=== PATIENT | female | born 1945 | race Caucasian/White ===

== ENCOUNTER 2020-04-25 17:40 | Inpatient (IN) | payer MEDICARE, SELFPAY ==
[2020-04-25] VITALS (15 sets, daily range): BP systolic 92–174; BP diastolic 47–94; PULSE 86–111; RESP 14–40; TEMP 36.7; O2SAT 75–100; BMI 29.5
--- NOTE | 2020-04-25 18:02 | PC.NURSE ---
Dr. Santiago in room to see patient. Patient currently alert and oriented x 3 and reports she is willing to go on ventilator if she needs to.
--- NOTE | 2020-04-25 18:03 | XRR_ITS ---
PROCEDURE INFORMATION: Exam: XR Chest, 1 View Exam date and time: 04/25/2020 6:25 PM Age: 75 years old Clinical indication: Dyspnea TECHNIQUE: Imaging protocol: XR of the chest Views: 1 view. COMPARISON: No relevant prior studies available. FINDINGS: Lungs: Dense airspace consolidation in the right lung base and patchy consolidation in the left base. Diffuse ground-glass opacities in both lungs. Pleural space: Probable right pleural effusion. No pneumothorax. Heart/Mediastinum: Left [id number] with tip in the superior left mediastinum, most likely in the left brachycephalic vein. Bones/joints: Unremarkable. XR/XR chest 1V portable [id number] IMPRESSION: 1. Bilateral pneumonia with possible superimposed pulmonary edema. 2. Dense consolidation in the right lung base could represent pneumonia. Postobstructive changes related to a central obstructing neoplasm is not excluded. Correlation to prior studies recommended. If none are available, follow-up with a CT chest is recommended.
--- NOTE | 2020-04-25 18:04 | ECG_ITS ---
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 Measurements Intervals [place] Rate: 93 P: 52 FL: 134 QRS: 6 QRSD: 87 T: 90 QT: 281 QTc: 350 Interpretive Statements SINUS RHYTHM POSSIBLE RIGHT VENTRICULAR CONDUCTION DELAY [RSR (QR) IN V1/V2] NONSPECIFIC T-WAVE ABNORMALITY Compared to ECG 04/25/2020 20:17:18 Incomplete right bundle-branch block no longer present T-wave abnormality still present Electronically Signed On 04-26-2020 10:57:45 MEDICAL RECORDS ASSISTANT by Julio Obregon M.D. [id number]
--- NOTE | 2020-04-25 18:16 | ED_ITS ---
HPI - SOB/Dyspnea General: Chief Complaint: Shortness of Breath/Dyspnea Stated Complaint: SOB; COVID POS Time Seen by Provider: 04/25/20 17:45 Source: patient Limitations: no limitations History of Present Illness: HPI Narrative: Danyell is a 75-year-old female who comes in from the senior care in respiratory distress. Patient tested positive for Covid 2 days ago. Since that time she has declined significantly. Patient is alert and oriented to person, place, time and situation. I am going to place her on BiPAP but she is in respiratory distress but after discussing with her she does agree to go on a ventilator if necessary. Patient is 90 chest pain. He does want to try BiPAP before we move forward. Patient is a DNR but does agree to do a ventilator if will help keep her alive. Further history is on obtainable as the patient has significant dyspnea and gives 1 or 2 word answers to questions. 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 Type 2 diabetes mellitus Surgical History (Updated 04/25/20 @ 22:01 by Harmeet Reid MD) No pertinent past surgical history Family History (Updated 04/25/20 @ 22:03 by Harmeet Reid MD) Other No pertinent family history Social History (Updated 04/25/20 @ 22:04 by Harmeet Reid MD) Smoking and tobacco status: former smoker Alcohol intake: unknown Substance/Drug Use: unknown Housing: Longterm Physical Exam Const: COMMON NORMALS: patient oriented x3 and alert GENERAL APPEARANCE: in distress and frail appearing HENMT: COMMON NORMALS: normocephalic, atraumatic, external ears normal, EAC's normal and Normal external nose present HEAD & SCALP: normal to inspection, normocephalic and atraumatic FACE & SINUS: normal facial exam and face symmetric NOSE: Normal external nose present and Normal nares present EXTERNAL EAR: Yes external ears normal EXTERNAL AUDITORY CANAL: EAC's normal MOUTH: Normal oral and palatal mucosa present, lip normal and tongue normal Eye: COMMON NORMALS: Equal, round and reactive pupils present and conjunctivae normal GENERAL EYE: appearance normal, both eyes and all related structures ALIGNMENT: Yes alignment normal PERIORBITAL: periorbital findings normal EYELID: eyelids normal CONJUNCTIVA: Yes conjunctivae normal SCLERA: sclerae normal PUPIL: Yes Equal, round and reactive pupils present Neck/C-Spine: COMMON NORMALS: full ROM, no lymphadenopathy, supple, no meningeal signs and no JVD GENERAL: Yes normal visual inspection and Yes trachea midline Chest: COMMONS NORMALS: normal inspection of the chest and normal palpation of entire chest wall Resp: EFFORT & INSPECTION: Yes labored and Yes retractions AUSCULTATION: rales, rhonchi and wheezes Cardio: COMMON NORMALS: no JVD, regular rate, regular rhythm, S1 normal heart sound present and S2 normal heart sound present RATE: regular rate RHYTHM: regular rhythm HEART SOUNDS: S1 normal heart sound present, S2 normal heart sound present, no click, no gallops, no murmurs and no rubs GI: COMMON NORMALS: Soft to palpation and No hepatosplenomegaly present PALPATION: Yes Soft to palpation, No Tenderness to palpation present (GI), No Guarding due to palpation present (GI), No Rigid due to palpation, Yes No hepatosplenomegaly present, No Hernia present, No Palpable mass present and No Pulsatile mass present : COMMON NORMALS: Yes no CVA tenderness BLADDER/KIDNEY EXAM: Yes no CVA tenderness EXTERNAL FEMALE EXAM: No Hernia present Back/Pelvis: COMMON NORMALS: no CVA tenderness, thoracic and lumbar spine normal to inspection, no thoracic nor lumbar tenderness and thoraco-lumbar ROM normal Extremity: COMMON NORMALS: normal to inspection, full ROM, capillary refill normal, no joint enlargement, no clubbing, cyanosis or edema and no calf tenderness Neuro: COMMON NORMALS: patient oriented x3, CN's II-XII intact bilaterally, moves all extremities, no focal motor deficits and no sensory deficits noted SENSORIUM/ORIENTATION: Yes alert MENINGEAL SIGNS: Yes no meningeal signs SPEECH: speech normal Psych: COMMON NORMALS: mental status grossly normal, Normal thought process p resent, cooperative, speech normal and activity/motor behavior normal SPEECH: Yes normal speech THOUGHT PROCESS: Normal thought process present Skin: COMMON NORMALS: no rashes or lesions noted, turgor normal, no jaundice, no petechiae and no mottling GENERAL SKIN EXAM: no rashes or lesions noted and turgor normal Procedures Intubation Time out performed: Yes sedative: Etomidate Mg Given: 20 paralytic: Succinylcholine Mg Given: 125 Laryngoscope: fiber optic video scope ET Tube Size: 8 Tube Secured Depth (cm): 20 Tube Secured Location: lips Tube Placement Confirmation: visualized tube passing through cords Patient Tolerated Procedure: well and no complications Intubation Complications: none Course Vital Signs: Vital signs: Vital Signs Temperature 98.8 F 04/26/20 04:00 Pulse Rate 104 H 04/26/20 05:00 Respiratory Rate 14 04/26/20 04:03 Blood Pressure 104/48 04/26/20 05:00 Pulse Oximetry 94 04/26/20 05:00 MDM - SOB/Dyspnea MDM Narrative: Medical decision making narrative: Patient did not tolerate BiPAP and continue to become hypoxic and lethargic. She was able to talk to Dr. Reid before we made the decision to intubate but he agreed with that decision as well. He was able to talk to the patient's who agreed with that decision as well. Patient is now resting comfortably on the ventilator. Patient be admitted to our viral ICU. Lab Data: Attestation: I reviewed the patient's lab results. Labs: Lab Results 04/25/20 04/25/20 04/25/20 Range/Units 18:15 19:17 19:17 WBC 8.6 (4.0-10.0) 10^3/ uL RBC 3.71 L (4.1-5.3) 10^6/u L Hgb 10.0 L (11.5-15.3) g/dL Hct 35.1 L (37.0-47.0) % MCV 94.6 (81-99) fL MCH 27.0 L (28.0-34.0) pg MCHC 28.5 L (30.0-36.0) g/dL RDW 15.7 H (12.1-15.1) % Plt Count 237 (130-400) 10^3/c mm MPV 9.2 (7.4-10.4) fL Neut % (Auto) 93.2 % Lymph % (Auto) 1.7 % [place] % (Auto) 4.1 % Eos % (Auto) 0.0 % Baso % (Auto) 0.1 % Neut # (Auto) 8.05 H (1.8-7.7) 10^3/u L Lymph # (Auto) 0.2 L (0.8-4.8) 10^3/u L [place] # (Auto) 0.4 (0.2-0.9) 10^3/u L Eos # (Auto) 0.0 (0.0-0.8) 10^3/u L Baso # (Auto) 0.0 (0.0-0.1) 10^3/u L Nucleated RBC % (a uto) 0 % Nucleated RBCs # 0.0 /100WBC PT 14.60 (12.1-14.9) SECO NDS INR 1.10 (0.8-1.2) Fibrinogen 780 H (174-498) mg/dL D-Dimer 4.02 H (0-0.59) ug/mIFE U Specimen Type Arterial Sample Site Brachial, right ABG pH 7.29 L (7.35-7.45) ABG pCO2 75.7 H* (35-45) mmHg ABG pO2 35.8 L* (80.0-100.0) mmH g ABG HCO3 36.3 H (22-26) mmol/L ABG Base Excess 7.9 H (-2.0-2.0) mmol/ L Renzo Test Pos Hematocrit 29.3 L (37-47) % O2 Delivery Device Nc O2 Liters/Min 8.0 % Pharmacy Technologist ID Bd Sodium (136-145) mmol/L Potassium (3.5-5.1) mmol/L Chloride (98-107) mmol/L Carbon Dioxide (22-29) mmol/L Anion Gap (5-19) BUN (8-23) mg/dL Creatinine (0.5-0.9) mg/dL GFR Calculation Glucose (65-115) mg/dL Calculated Osmolal ity (285-295) mOsm/k g Lactic Acid (0.5-2.2) mmol/L Calcium (8.5-10.5) mg/dL Magnesium (1.7-2.3) mg/dL Total Bilirubin (0.15-1.2) mg/dL AST (0-32) U/L ALT (0-33) U/L Alkaline Phosphata se (35-105) IU/L Troponin T Baselin e (0-10) ng/L C-Reactive Protein (0.0-4.9) mg/L NT-Pro-B Natriuret Pep (0-450) pg/mL Total Protein (6.6-8.7) g/dL Albumin (3.5-5.2) g/dL Globulin (1.3-4.6) g/dL Procalcitonin (0-0.5) ng/mL 04/25/20 04/25/20 04/25/20 Range/Units 19:17 19:17 19:17 WBC (4.0-10.0) 10^3/ uL RBC (4.1-5.3) 10^6/u L Hgb (11.5-15.3) g/dL Hct (37.0-47.0) % MCV (81-99) fL MCH (28.0-34.0) pg MCHC (30.0-36.0) g/dL RDW (12.1-15.1) % Plt Count (130-400) 10^3/c mm MPV (7.4-10.4) fL Neut % (Auto) % Lymph % (Auto) % [place] % (Auto) % Eos % (Auto) % Baso % (Auto) % Neut # (Auto) (1.8-7.7) 10^3/u L Lymph # (Auto) (0.8-4.8) 10^3/u L [place] # (Auto) (0.2-0.9) 10^3/u L Eos # (Auto) (0.0-0.8) 10^3/u L Baso # (Auto) (0.0-0.1) 10^3/u L Nucleated RBC % (a uto) % Nucleated RBCs # /100WBC PT (12.1-14.9) SECO NDS INR (0.8-1.2) Fibrinogen (174-498) mg/dL D-Dimer (0-0.59) ug/mIFE U Specimen Type Sample Site ABG pH (7.35-7.45) ABG pCO2 (35-45) mmHg ABG pO2 (80.0-100.0) mmH g ABG HCO3 (22-26) mmol/L ABG Base Excess (-2.0-2.0) mmol/ L Renzo Test Hematocrit (37-47) % O2 Delivery Device O2 Liters/Min % Pharmacy Technologist ID Sodium 145 (136-145) mmol/L Potassium 2.5 L* (3.5-5.1) mmol/L Chloride 96 L (98-107) mmol/L Carbon Dioxide 38 H (22-29) mmol/L Anion Gap 13.5 (5-19) BUN 30 H (8-23) mg/dL Creatinine 0.7 (0.5-0.9) mg/dL GFR Calculation Not Reportable Glucose 332 H (65-115) mg/dL Calculated Osmolal ity 319 H (285-295) mOsm/k g Lactic Acid 1.9 (0.5-2.2) mmol/L Calcium 9.0 (8.5-10.5) mg/dL Magnesium 2.0 (1.7-2.3) mg/dL Total Bilirubin 0.3 (0.15-1.2) mg/dL AST 37 H (0-32) U/L ALT 25 (0-33) U/L Alkaline Phosphata se 101 (35-105) IU/L Troponin T Baselin e 44 H (0-10) ng/L C-Reactive Protein 270.9 H (0.0-4.9) mg/L NT-Pro-B Natriuret Pep 1674 H (0-450) pg/mL Total Protein 6.2 L (6.6-8.7) g/dL Albumin 3.1 L (3.5-5.2) g/dL Globulin 3.1 (1.3-4.6) g/dL Procalcitonin (0-0.5) ng/mL 04/25/20 Range/Units 19:17 WBC (4.0-10.0) 10^3/ uL RBC (4.1-5.3) 10^6/u L Hgb (11.5-15.3) g/dL Hct (37.0-47.0) % MCV (81-99) fL MCH (28.0-34.0) pg MCHC (30.0-36.0) g/dL RDW (12.1-15.1) % Plt Count (130-400) 10^3/c mm MPV (7.4-10.4) fL Neut % (Auto) % Lymph % (Auto) % [place] % (Auto) % Eos % (Auto) % Baso % (Auto) % Neut # (Auto) (1.8-7.7) 10^3/u L Lymph # (Auto) (0.8-4.8) 10^3/u L [place] # (Auto) (0.2-0.9) 10^3/u L Eos # (Auto) (0.0-0.8) 10^3/u L Baso # (Auto) (0.0-0.1) 10^3/u L Nucleated RBC % (a uto) % Nucleated RBCs # /100WBC PT (12.1-14.9) SECO NDS INR (0.8-1.2) Fibrinogen (174-498) mg/dL D-Dimer (0-0.59) ug/mIFE U Specimen Type Sample Site ABG pH (7.35-7.45) ABG pCO2 (35-45) mmHg ABG pO2 (80.0-100.0) mmH g ABG HCO3 (22-26) mmol/L ABG Base Excess (-2.0-2.0) mmol/ L Renzo Test Hematocrit (37-47) % O2 Delivery Device O2 Liters/Min % Pharmacy Technologist ID Sodium (136-145) mmol/L Potassium (3.5-5.1) mmol/L Chloride (98-107) mmol/L Carbon Dioxide (22-29) mmol/L Anion Gap (5-19) BUN (8-23) mg/dL Creatinine (0.5-0.9) mg/dL GFR Calculation Glucose (65-115) mg/dL Calculated Osmolal ity (285-295) mOsm/k g Lactic Acid (0.5-2.2) mmol/L Calcium (8.5-10.5) mg/dL Magnesium 2.0 (1.7-2.3) mg/dL Total Bilirubin (0.15-1.2) mg/dL AST (0-32) U/L ALT (0-33) U/L Alkaline Phosphata se (35-105) IU/L Troponin T Baselin e (0-10) ng/L C-Reactive Protein (0.0-4.9) mg/L NT-Pro-B Natriuret Pep (0-450) pg/mL Total Protein (6.6-8.7) g/dL Albumin (3.5-5.2) g/dL Globulin (1.3-4.6) g/dL Procalcitonin 0.21 (0-0.5) ng/mL Imaging Data^: CXR: Attestation: I personally reviewed and interpreted this imaging study as follows: My impression: Cardiomegaly with bilateral lower lobe infiltrates. EKG Data^: EKG 1: Attestation: I personally reviewed and interpreted this EKG as follows: EKG Interpretation Date: 04/25/20 EKG interpretation time: 20:17 Interpretation: Normal sinus rhythm at 96 beats a minute, incomplete right bundle branch block, normal intervals, no acute ST or T wave changes. Discharge Plan Discharge Patient Disposition: Admitted As Inpatient Admit Provider: Harmeet Reid Clinical Impression: Acute exacerbation of chronic obstructive airways disease, Pneumonia due to COVID-19 virus Condition: Stable Coding Level of Care Code ED Furnace Repairer Helper for Chg Fwd Exam Comprehensive
[2020-04-25 18:23] LABS: ABG PH Result 7.29 (7.35-7.45); Arterial Blood Gas Hematocrit 29.3 % (37-47); Base Excess ABG 7.9 mmol/L (-2.0-2.0); Blood Gas Allen Test Pos; Blood Gas Operator Identificat BD; Blood Gas Sample Site Brachial, right; Blood Gas Sample Type Arterial; HCO3 ABG 36.3 mmol/L (22-26); Oxygen Device NC; PO2 ABG 35.8 mmHg (80.0-100.0)
[2020-04-25 18:24] LABS: ABG PCO2 75.7 mmHg (35-45)
[2020-04-25] MEDS: ipratropium-albuterol 3 mL Neb 9 ML INHALATION (18:51)
[2020-04-25] MEDS: dexamethasone 4 mg/mL INJ 10 MG IVP (19:20)
[2020-04-25] MEDS: sodium chloride 0.9% 1,000 ML 100 ML IV (19:20)
[2020-04-25 19:21] LABS: Basophils % 0.1 %; Hematocrit 35.1 % (37.0-47.0); Lymphocytes # 0.2 10^3/uL (0.8-4.8); Lymphocytes % 1.7 %; Mean Corpuscular HGB Conc 28.5 g/dL (30.0-36.0); Mean Corpuscular Volume 94.6 fL (81-99); Mean Platelet Volume 9.2 fL (7.4-10.4); Monocytes # 0.4 10^3/uL (0.2-0.9); Monocytes % 4.1 %; Neutrophils # 8.05 10^3/uL (1.8-7.7); Neutrophils % 93.2 %; Nucleated Red Blood Cells % 0 %; Platelet Count 237 10^3/cmm (130-400); Red Blood Count 3.71 10^6/uL (4.1-5.3); Red Cell Distribution Width 15.7 % (12.1-15.1); White Blood Count 8.6 10^3/uL (4.0-10.0)
--- NOTE | 2020-04-25 19:24 | PM.HP ---
Providers/Chief Complaint Primary Care Provider: Praveen Combs MD Chief Complaint: SOB; COVID POS History of Present Illness Danyell Douglass is a 75 year old female presented from a fpc for acute respiratory distress. Patient was tested positive with COVID-19 pneumonia 2 days ago and in last 48 hours her breathing has gotten worse. [facility] report: admitted last week 04/15, after she was diagnosed with pneumonia, at the facility she was kept on 5 L nasal cannula for hypoxic respiratory failure she was saturating 88 to 89% last night and this morning her breathing got worse\she was sent to the hospital for further evaluation. Nursing staff did not notice vomiting but patient was endorsing nausea to them, no fever or recent diarrhea. They are not sure whether she received any chemo/radiotherapy for her lung cancer. Talked with the son (phone #[phone]): Son is stating that she was diagnosed with lung cancer but he is not sure about the subtype, she went for chemotherapy at [place] for couple months and stopped getting chemo in July of this year, he is not sure about complete medical history, but he is stating that Dr. Ramo Clark at [facility] would have her records. He is not sure whether she was diagnosed with pneumonia a month ago or in January. She was intubated in the ER because of persistent hypoxia on BiPAP she was not tolerating BiPAP at all, Dr. Chun had discussed with the patient about intubation, she gave consent but had official documentation for DO NOT RESUSCITATE only, Dr. Chun asked me to analyze goals of care, I examined the patient while she was on BiPAP, she was hypoxic being on BiPAP and was very irritable and agitated when I discussed about intubation, she seemed to understand the gravity of her shortness of breath, she was awake alert not confused at all, she agreed with intubation and stated I do not care if we have to do it I called family as well, was told about the situation and he agreed with the intubation as well. Dr. Chun was conveyed about the goals of care who intubated the patient. 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 Type 2 diabetes mellitus Surgical History (Updated 04/25/20 @ 22:01 by Harmeet Reid MD) No pertinent past surgical history Family History (Updated 04/25/20 @ 22:03 by Harmeet Reid MD) Other No pertinent family history Social History (Updated 04/25/20 @ 22:04 by Harmeet Reid MD) Smoking and tobacco status: former smoker Alcohol intake: unknown Substance/Drug Use: unknown Housing: Detention Vitals/I&O/Wt Last Vital Signs Temp 98.1 F 04/25/20 17:46 Pulse 98 04/25/20 18:55 Resp 40 H 04/25/20 18:54 BP 128/71 04/25/20 17:46 Pulse Ox 86 L 04/25/20 18:54 Weight last 48 hrs Weight 70.76 kg Physical Exam Narrative: EXAM NARRATIVE: elderly female who appears more than stated age Clinically looks mildly fluid overloaded Malnourished Currently intubated PRVC tidal volume 450 PEEP 10 FiO2 100% on fentanyl 35 and propofol 5 Saturating 97% normal hemodynamics No skin mottling noted Assisted breath sounds with adventitious sound coarse rhonchi and crackles S1, S2 sinus rhythm signs of heart failure Nontender abdomen, soft Lower extremity no gangrene ulcer trace edema Waldron catheter draining urine Before intubation consent was taken, goals of care were discussed with the patient and the son Before intubation she was on BiPAP was able to understand the gravity of shortness of breath, she was awake and alert and oriented to place and person, however was not keeping her mask on Data : 04/25/20 19:17 04/25/20 19:17 Micro: Microbiology 04/25/20 19:17 Blood Culture - Preliminary Blood SPECIMEN COLLECTED A&P Assessment and plan (1) Acute exacerbation of chronic obstructive airways disease: Status: Acute (2) Sepsis: Status: Acute (3) Sepsis with acute hypoxic respiratory failure: Status: Acute (4) Hypokalemia: Status: Acute (5) Respiratory failure: Status: Acute (6) Acute hypercapnic respiratory failure: Status: Acute (7) Pulmonary edema: Status: Acute Additional A&P Information Acute on chronic hypoxic hypercarbic respiratory failure Underlying history of lung cancer Postobstructive pneumonia to be ruled out, I would request CT chest Currently intubated PRVC tidal volume 450 PEEP 10 FiO2 100% Currently on 2 sedating agents fentanyl at 35 and propofol at 5 Hemodynamics are stable Would request another blood gas post intubation She was intubated for worsening shortness of breath increased work of breathing and hypoxia despite being on BiPAP Sepsis secondary to community-acquired pneumonia He is immunocompromised with history of lung cancer previous history of chemoradiation was recently diagnosed with pneumonia I would go ahead and escalate antibiotics to double antipseudomonal coverage along vancomycin Request antigen sputum culture, blood culture DuoNeb every 4 as needed She was recently diagnosed with COVID-19 2 days ago Would request procalcitonin level Hypokalemia Nursing staff did not endorse diarrhea or vomiting at the facility She has been taking Lasix 40 mg for congestive heart failure which might be etiology for hypokalemia Potassium repleted Hypertension: She has been taking lisinopril which I would resume for now with close monitoring of hemodynamics while being on 2 sedating agent Type 2 diabetes: Accu-Cheks every 6 hours with moderate sliding scale Congestive heart failure ejection fraction unknown, Mild signs of fluid overload, she meet sepsis criteria, judicious use of fluid I will keep her on D5 normal saline with potassium supplementation fluid rate at 75 mL/h with close monitoring for worsening of edema, hold Lasix for now Also care discussed with the patient and her son Patient verbalized understanding and gave consent for intubation to the ER physician which was also witnessed by myself and respiratory therapist DVT prophylaxis considering high D-dimer and history of cancer I would start her on therapeutic dose of Lovenox for high suspicion of PE/DVT, I have requested CTA chest to rule out PE Prognosis: Guarded Son updated We will request records from [facility] Attestations Medical Necessity Statement*: Anticipating stay in the hospital cross more than 2 midnights continued management for sepsis, pneumonia, respiratory failure currently intubated and sedated need ICU management Time Spent in Patient Care: (>than 50% of time spent in counselling and/or direct pt care on unit). 50mins Coding Level of Care Code Acute Fundraising Assistant for Chg Fwd Diagnoses Acute exacerbation of chronic obstructive airways disease J44.1 Sepsis A41.9 Sepsis with acute hypoxic respiratory failure A41.9; R65.20; J96.01 Hypokalemia E87.6 Respiratory failure J96.90 Acute hypercapnic respiratory failure J96.02 Pulmonary edema J81.1
[2020-04-25 19:39] LABS: Lactic Sepsis W/Reflex 1.9 mmol/L (0.5-2.2)
[2020-04-25 19:41] LABS: Fibrinogen 780 mg/dL (174-498)
[2020-04-25] MEDS: succinylcholine 20 mg/mL SDV 10mL 125 MG IVP (19:42)
[2020-04-25 19:43] LABS: Troponin(5th) Baseline 44 ng/L (0-10)
[2020-04-25 19:50] LABS: D Dimer 4.02 ug/mIFEU (0-0.59)
[2020-04-25 19:51] LABS: Alanine Aminotransferase 25 U/L (0-33); Albumin Level 3.1 g/dL (3.5-5.2); Alkaline Phosphatase 101 IU/L (35-105); Anion Gap 13.5 (5-19); Aspartate Amino Transferase 37 U/L (0-32); Blood Urea Nitrogen 30 mg/dL (8-23); C Reactive Protein 270.9 mg/L (0.0-4.9); Carbon Dioxide 38 mmol/L (22-29); Chloride 96 mmol/L (98-107); Globulin 3.1 g/dL (1.3-4.6); Glucose 332 mg/dL (65-115); NT Pro B Type Natriuretic Pept 1674 pg/mL (0-450); Osmolality Calculated 319 mOsm/kg (285-295); Sodium 145 mmol/L (136-145); Total Bilirubin 0.3 mg/dL (0.15-1.2); Total Protein 6.2 g/dL (6.6-8.7)
--- NOTE | 2020-04-25 19:51 | XRR_ITS ---
PROCEDURE INFORMATION: Exam: XR Chest, 1 View Exam date and time: 04/25/2020 7:52 PM Age: 75 years old Clinical indication: Device placement; Ett placement (vent status); Additional info: Post intubation TECHNIQUE: Imaging protocol: XR of the chest Views: 1 view. COMPARISON: CR (CHEST, ) 04/25/2020 6:23 PM FINDINGS: Tubes, catheters and devices: Intubation with tip 5.7 cm above the lexy. NG tube with tip in the proximal stomach. Lungs: Stable dense consolidation in the right lung base. Stable dense patchy ground-glass opacities throughout both lungs. Pleural space: Stable small right pleural effusion. No pneumothorax. Heart/Mediastinum: Unremarkable. No cardiomegaly. Bones/joints: Unremarkable. Other findings: Stable left Yihcwz-[id number]-Yotm. XR/XR chest 1V portable [id number] IMPRESSION: 1. Stable chest following intubation.
[2020-04-25 19:52] LABS: Potassium 2.5 mmol/L (3.5-5.1)
--- NOTE | 2020-04-25 20:04 | ECG_ITS ---
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 Measurements Intervals [place] Rate: 96 P: 50 ND: 134 QRS: 3 QRSD: 93 T: 68 QT: 327 QTc: 414 Interpretive Statements SINUS RHYTHM INCOMPLETE RIGHT BUNDLE BRANCH BLOCK [90+ ms QRS DURATION, TERMINAL R IN V1/V2, 40+ ms S IN I/aVL/V4/V5/V6] NONSPECIFIC T-WAVE ABNORMALITY No previous ECG available for comparison Electronically Signed On 04-26-2020 11:04:51 INTERNET APPLICATION DEVELOPER by Julio Obregon M.D. [id number]
[2020-04-25] MEDS: LORazepam 2 mg/mL INJ 1 mL IVP (20:11)
[2020-04-25] MEDS: fentaNYL 50 mcg/mL INJ 2mL 100 MCG IVP (20:12)
[2020-04-25] MEDS: vecuronium 10 mg SDV IVP (20:13)
[2020-04-25 20:42] LABS: ABG PCO2 51.9 mmHg (35-45); ABG PH Result 7.41 (7.35-7.45); Arterial Blood Gas Hematocrit 31.4 % (37-47); Blood Gas Allen Test Pos; Blood Gas Sample Site Radial, left; Blood Gas Sample Type Arterial; Blood Gas Tidal Volume 0.45; HCO3 ABG 32.8 mmol/L (22-26); Oxygen Device VENT
[2020-04-25 20:50] LABS: Urine Appearance Clear (CLEAR); Urine Color Yellow (Yellow); pH Urine 5 (5-7)
[2020-04-25 20:51] LABS: Bilirubin Urine Neg (Negative); Blood Urine Neg (Negative); Glucose Urine UA Norm (Normal); Ketones Urine Negative (Negative); Leukocyte Esterase Urine Negative (Negative); Nitrate Urine Negative (Negative); Protein Urine Neg (Negative); Urobilinogen Urine Norm (Negative)
[2020-04-25 20:54] LABS: Add Urine Culture? No; Amorphous Sediment Urine 2+ /hpf; Bacteria Urine TRACE /hpf; RBC Urine 0-4 /hpf (0-2); Squamous Epithelial Cell Urine 0-4 /hpf (0-5); WBC Urine 0-4 /hpf (0-5)
--- NOTE | 2020-04-25 21:04 | CTR_ITS ---
PROCEDURE INFORMATION: Exam: CT Angiography Chest With Contrast Exam date and time: 04/25/2020 9:22 PM Age: 75 years old Clinical indication: Dyspnea; Patient HX: HX of lung CA covid+ resp distress intubated; Additional info: Neoplasm TECHNIQUE: Imaging protocol: Computed tomographic angiography of the chest with intravenous contrast. 3D rendering (Not supervised by radiologist): MIP and/or 3D reconstructed images were created by the technologist. Radiation optimization: All CT scans at this facility use at least one of these dose optimization techniques: automated exposure control; mA and/or kV adjustment per patient size (includes targeted exams where dose is matched to clinical indication); or iterative reconstruction. Contrast material: OMNI 350; Contrast volume: 69 ml; Contrast route: INTRAVENOUS (IV); COMPARISON: CR (CHEST, ) 04/25/2020 8:05 PM RADIATION DOSE METRICS: Total DLP (mGy-cm): 544.05 FINDINGS: Tubes, catheters and devices: NG tube with tip in the mid stomach. Pulmonary arteries: Normal. No pulmonary emboli. Aorta: Mild aneurysmal dilatation of the ascending thoracic aorta measuring 4.0 cm. No dissection. Lungs: Dense consolidation in the right middle lobe, right lower lobe, and posterior right upper lobe. There is loss of air bronchograms in the right lower lobe. Narrowing of the right middle lobe proximal bronchus with distal bronchiectasis. Obstruction of the right lower lobe bronchus. Patchy mixed ground-glass and interstitial opacities throughout the remainder of both lungs. Pleural space: Small right pleural effusion. Heart: Small pericardial effusion. Coronary artery calcifications. Cardiomegaly. Mediastinal space: Intubation with tip in the midthoracic trachea. Lymph nodes: Unremarkable. No enlarged lymph nodes. Spleen: Calcified granulomas in the spleen. Intraperitoneal space: Mild ascites. Bones/joints: Unremarkable. No acute fracture. Soft tissues: Unremarkable. CT/CT angio chest PE protcl [id number] IMPRESSION: 1. No evidence for pulmonary embolus. 2. Multilobar ground-glass opacities with dense consolidation in the right middle and lower lobes. This is consistent with severe COVID-19 pneumonia. 3. There is loss of air bronchograms within the right lower lobe and obstruction of the right lower lobe main bronchus. A discrete mass is not visualized, however a neoplastic process cannot be excluded. Consider follow-up with bronchoscopy when patient is able. 4. Small right pleural effusion. 5. Small pericardial effusion. Radiation Dose CTDIVOL = (mGy): DLP = 544.05 (mGy-cm)
[2020-04-25 21:28] LABS: Influenza A by IFA Negative (Negative); Influenza B by IFA Negative (Negative)
[2020-04-25 21:30] LABS: Procalcitonin 0.21 ng/mL (0-0.5)
[2020-04-25] MEDS: FUROsemide 10 mg/mL SDV 4mL 40 MG IVP (21:31)
[2020-04-25] MEDS: fentaNYL 50 mcg/mL INJ 2mL 10 MCG IVP (21:32)
[2020-04-25] MEDS: propofol 1,000 MG/100 ML INJ 2.1 MG IV (21:36)
[2020-04-25] MEDS: iohexol 350 mg/mL 100 mL Btl IV (22:27)
[2020-04-25] MEDS: potassium chloride premix 100 ML 25 MEQ IV (22:51)
--- NOTE | 2020-04-25 23:51 | PC.NURSE ---
EKG done at 2340 and shown to ER doctor
[2020-04-26] VITALS (169 sets, daily range): BP systolic 61–137; BP diastolic 37–75; PULSE 73–178; RESP 1–28; TEMP 36.8–37.2; O2SAT 72–97
--- NOTE | 2020-04-26 00:04 | ECG_ITS ---
[facility] ED Test Date: 2020-04-26 Pat Name: Danyell Douglass Department: Room: ICU19 Gender: Female Home Manager: : 1945 Requested By: Madelin Hood Order Number: [id number] Pradeep MD: Jennifer Mercer M.D. Measurements Intervals [place] Rate: 99 P: 49 [place]: 131 QRS: 9 QRSD: 91 T: 73 QT: 277 QTc: 357 Interpretive Statements SINUS RHYTHM WITH MARKED SINUS ARRHYTHMIA NONSPECIFIC ST & T-WAVE ABNORMALITY Compared to ECG 04/25/2020 23:41:15 No significant changes Electronically Signed On 04-29-2020 21:25:14 IT APPLICATIONS MANAGER by Jennifer Mercer M.D. [email or web address].[facility] centerGENEI Systems Inc.[facility] hard[facility] hospitalExabre/store/OM/[id number]
--- NOTE | 2020-04-26 00:42 | PC.NURSE ---
Doug GOMEZ from [facility] called for pt report at [phone]
--- NOTE | 2020-04-26 00:45 | PC.NURSE ---
ED nurse, ED charge nurse, RT, ED physician, and logistics technician all in room for intubation. RSI box in the room. Pt is a DNR. 20mg Etomidate pushed at 1940, 125mg Succ pushed 1941, flushed with normal saline, 2mg Ativan pushed at 1641, 10mcg Fentenyl pushed at 1941, 10mg Vecronium pushed at 1943. ET tube placed 20 at the lip. This nurse placed 18 german OG tube and 16 german mccarthy. X ray to check tube placement was completed and ET/OG tube placed correctly. Propofol and fentenyl drips started.
[2020-04-26] MEDS: dexamethasone 4 mg/mL INJ 6 MG IVP (01:44)
[2020-04-26] MEDS: piperacillin-tazobactam 3.375 GM in sodium chloride 0.9% (plus) 50 ML IV ×3 (01:45→17:06)
--- NOTE | 2020-04-26 01:45 | PC.PHAR ---
Vancomycin is dosed at 1500mg to produce a predicted trough level of 14.29 (population based pharmacokinetic analysis). A trough level has been ordered from the lab to confirm and adjust if needed.
[2020-04-26] MEDS: remdesivir 200 MG in sodium chloride 0.9% (100 ml) 100 ML 100 MG IV (01:55)
[2020-04-26] MEDS: enoxaparin 80 mg/0.8 mL Syringe 70 MG SUBCUT (02:28)
[2020-04-26 03:32] LABS: Glucose Point of Care 335 mg/dL (70-110)
[2020-04-26] MEDS: ipratropium-albuterol 3 mL Neb INHALATION ×2 (03:55→11:54)
[2020-04-26] MEDS: acetylcysteine 200 mg/mL SDV 4 mL 100 MG INHALATION ×2 (03:56→11:54)
[2020-04-26 04:54] LABS: ABG PCO2 53.8 mmHg (35-45); ABG PH Result 7.42 (7.35-7.45); Arterial Blood Gas Hematocrit 24.5 % (37-47); Base Excess ABG 9.6 mmol/L (-2.0-2.0); Blood Gas Sample Site Brachial, right; Blood Gas Sample Type Arterial; HCO3 ABG 35.1 mmol/L (22-26); PO2 ABG 64.2 mmHg (80.0-100.0)
[2020-04-26 04:56] LABS: Oxygen Device VENT
[2020-04-26] MEDS: potassium chloride premix 100 ML 25 MEQ IV (05:05)
[2020-04-26 05:21] LABS: Basophils % 0.2 %; Hematocrit 24.8 % (37.0-47.0); Hemoglobin 7.3 g/dL (11.5-15.3); Lymphocytes # 0.3 10^3/uL (0.8-4.8); Lymphocytes % 5.6 %; Mean Corpuscular HGB Conc 29.4 g/dL (30.0-36.0); Mean Corpuscular Hemoglobin 26.8 pg (28.0-34.0); Mean Corpuscular Volume 91.2 fL (81-99); Mean Platelet Volume 9.7 fL (7.4-10.4); Monocytes # 0.1 10^3/uL (0.2-0.9); Monocytes % 2.2 %; Neutrophils # 4.26 10^3/uL (1.8-7.7); Neutrophils % 91.6 %; Nucleated Red Blood Cells % 0 %; Platelet Count 151 10^3/cmm (130-400); Red Blood Count 2.72 10^6/uL (4.1-5.3); Red Cell Distribution Width 15.8 % (12.1-15.1); White Blood Count 4.7 10^3/uL (4.0-10.0)
[2020-04-26] MEDS: vancomycin 1,500 MG/300 ML PIGGYBACK 150 MG IV (05:30)
[2020-04-26 05:44] LABS: Alanine Aminotransferase 14 U/L (0-33); Albumin Level 2.4 g/dL (3.5-5.2); Alkaline Phosphatase 70 IU/L (35-105); Anion Gap 16.2 (5-19); Aspartate Amino Transferase 25 U/L (0-32); Blood Urea Nitrogen 29 mg/dL (8-23); C Reactive Protein 268.8 mg/L (0.0-4.9); Calcium 8.3 mg/dL (8.5-10.5); Carbon Dioxide 33 mmol/L (22-29); Chloride 101 mmol/L (98-107); Globulin 2.8 g/dL (1.3-4.6); Glucose 274 mg/dL (65-115); Lactate Dehydrogenase 388 U/L (135-214); Osmolality Calculated 322 mOsm/kg (285-295); Sodium 148 mmol/L (136-145); Total Bilirubin 0.2 mg/dL (0.15-1.2); Total Protein 5.2 g/dL (6.6-8.7)
[2020-04-26 05:45] LABS: Fibrinogen 592 mg/dL (174-498)
[2020-04-26 06:06] LABS: Potassium 2.2 mmol/L (3.5-5.1)
[2020-04-26 07:36] LABS: Glucose Point of Care 241 mg/dL (70-110)
[2020-04-26 07:39] LABS: Glucose Point of Care 279 mg/dL (70-110)
--- NOTE | 2020-04-26 08:56 | P.PN_ITS ---
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 Initial laboratory workup on arrival showed WBC of 8.6, hemoglobin of 10.0, hematocrit 35.1 and platelet count of 237. sodium 145, potassium 2.5, chloride 96, bicarb 38, BUN 30 and creatinine 0.7. AST of 37, ALT of 25 and alkaline phosphatase of 1 1. magnesium of 2.0. Troponin - T baseline 44, 42.90 at 120 min. CRP of 270.9. Influenza A/B negative. Chest x-ray showed bilateral pneumonia with possible superimposed pulmonary edema, dense consolidation in the right lung base and post obstructive changes related to possible central obstructive neoplasm. CTA Chest PE protocol was then performed which did not show any evidence of PE however again noted multi-lobar ground glass opacities with dense consolidation right RML/RLL. Also loss of air bronhograms with in the right lower lobe and obstruction of right lower lobe main bronchus suspecious for a discrete mass. Initial ABG pH of 7.29, pCO2 of 75.7, PO2 of 35.8 on nasal cannula. Patient was subsequently intubated and placed on mechanical ventilation. Repeat ABG showed 7.42, pCO2 of 53.8, Po2 of 64.2 and HCO3 of 35.1 on VC/AC In ER patient was given Decadron 10 mg IV x 1, Duoneb, Lasix 40 mg IV x 1, Lorazepam 2 mg IVP x 1 Mucomyst, Lovenox 70 mg SQx 1. K-rider 40 meq x 1, and 1 L NS bolus. Admitted to VICU where patient was continued on decadron 6 mg IV daily and initiated on Remdesivir 200mg iv x 1 followed by 100 mg IV daily. Also started on broad spectrum antibiotics with vancomycin pharmacy to dose, zosyn 3.375g IV. Additional potassium was replaced and also due to high risk she was started on lovenox 70 mg SQ BID. Shortly after admission she was found to be tachycardic. Initially appeared to be in SVT. She was given adenosine 6 mg x 1 and after no response 12 mg IV x 1. Did show minimal response however rate increased to 180s. Was noted to have hypotension and clinically appeared dry. 500 cc bolus of NS was given. After blood pressure improved Cardizem 10 mg x 2 was given a few hours apart. Later was also started on amiodarone gtt. Do to worsening hypotension she was up- titrated on levophed to 10. Consideration for cardioversion due to unstable arrhythmia however after discussion with family code stats was change to limited avoiding shock, cpr allowing only for continuation of ventilator support. Hb from admission had decreased to 7.3. No obvious source of bleed however given vitals she was transfused with 1 unit of PRBC. In light of this lovenox was held. Magnesium was found to be 1.7. Mag sulfate 1 g iv x 1 was given. K was found to be 2.2 after replacement this had imrpoved to 3.2. Patient remained sedated with fentanyl. Propofol was being weaned down and versed was initated. Due to hydrodynamic instability, cardiac arrhythmias patient was not placed in prone position with addition of NMB. Fio2 had been weaned to 70% which was maintained. Medications: Reviewed: Yes Vitals/I&O/Wt Last Vital Signs Temp 98.3 F 04/26/20 07:00 Pulse 164 H 04/26/20 08:44 Resp 14 04/26/20 08:49 BP 135/65 04/26/20 08:25 Pulse Ox 90 04/26/20 08:44 04/25/20 04/26/20 04/26/20 22:59 06:59 14:59 Intake Total 1313.105 / 1313.105 329.605 / 329.605 Output Total 1200 / 1200 Balance 113.105 / 113.105 329.605 / 329.605 Weight last 48 hrs Weight 70.76 kg Physical Exam Narrative: EXAM NARRATIVE: General -chronic ill-appearing on mechanical ventilation HEENT -ET tube in place Chest- mechanical ventilation / Left. medi-port CVS- tachy Abdomen- non-distended : mccarthy Extremities- no edema Data : 04/26/20 04:30 04/26/20 09:20 Micro: Microbiology 04/26/20 01:40 Gram Stain - Final Sputum - Endotracheal Tube Aspirate 04/26/20 03:38 Bacterial Antigens - Final Urine,Clean Catch 04/26/20 04:30 Blood Culture - Preliminary Blood SPECIMEN COLLECTED 04/26/20 03:38 Legionella Urinary Antigen - Final Urine Catheterized 04/25/20 19:17 Blood Culture - Preliminary Blood SPECIMEN COLLECTED A&P Assessment and plan (1) Acute hypercapnic respiratory failure: Status: Acute (2) Sepsis with acute hypoxic respiratory failure: Status: Acute (3) Acute exacerbation of chronic obstructive airways disease: Status: Acute (4) Pneumonia due to COVID-19 virus: Status: Acute (5) Hypokalemia: Status: Acute (6) Tachyarrhythmia: Status: Acute (7) Anemia: Status: Acute (8) Pulmonary edema: Status: Acute Acute on chronic hypoxic/hypercapnic respiratory failure s/p Mechanical Ventilation - Etiology multi-factorial - COVID 19 vs superimposed bacterial pneumonia vs pulmonary edema vs possible underlying lung cancer vs COPD - Currently on VC, TV 400, RR 14, PIP 32, Pplateau 30, PEEP of 10, MV 5.8 Lung compliance 19, airway resistance 15, FiO2 at 85%. - Continue above vent settings for now, Wean Fio2 as tolerated. - Monitor Pplateau pressure q4hr, Goal < 30 - If above > 30 will change to pressure control ventilation - Duoneb to change to Xopnex q6hr scheduled - D-dimer 4.02 - > Hold lovenox due to anemia - may consider resuming ppx dose. CTA - No PE - Continue propofol - wean as tolerated, fentanyl - Add versed - Unable to prone at the moment - unstable - Maintain MAP > 65 - Wean IV pressors as tolerated - Repeat ABG in AM or PRN - Chest x-ray in AM - Will consider pulmonary consult in am Sepsis due to COVID 19 pneumonia with hypotension - Possible super-imposed bacterial/ post obstructive - Low suspicion of bacterial - Check Pro-calcitonin - 0.21 - Blood culture x 2 - NGTD - Sputum culture - Bacterial ag - pending - Lactic acid now - Continue vancomycin pharmacy to dose - Continue zosyn 3.375g IV q8hr - Continue Remdesivir 100 mg IV daily x 4 days - Continue Decadron 6mg daily x total 10 days - Check Ferritin, CRP, Pro-luz elena, d-dimer q2 days - next in am Suspected congestive heart failure exacerabtion / vs non-cardiogenic pulmonary edema - unspecified type - no prior echo - Will obtain ECHO - Lasix 40 mg IV x 1 in ER - Currently dry - Will trial 500cc bolus x 1 - Check daily weight / Urine output Tachyarrythemia / P.SVT / hx of P. Atrial Fib - Elevated troponin - 44 - > 42.9 - s/p adenosine 6mg / 12 mg - no response - Started on Amidarone ggt - ECHO ordered - perform once HR < 100 - Consider cardiology consult Acute anemia - Hb 10.0- > 7.3 - S/P 1 unit of PRBC - Repeat h/h - Iron studies in am - Stool for occult blood Hx of Lung cancer - Unclear prior type and chemo plan - Obtain records from PCP in am Diabetes Mellitus - Check A1c in am - Monitor blood sugar q4hr - Goal BS < 180 Gi ppx - Pepcid 20 mg IV BID DVT ppx - Lovenox 40 mg SQ daily ( next dose 04/27) CODE STATUS : DNR Limited Attestations Medical Necessity Statement*: Patient require further hospitalization for management of respiratory failure, tachyarrhythmias, COVID-19 pneumonia Time Spent in Patient Care: Greater than 35 minutes (>than 50% of time spent in counselling and/or direct pt care on unit) . Critical Care Time: Critical Care Time (min): 85 Coding Level of Care Code Acute Armature Winder Repair for g Fwd Diagnoses Acute hypercapnic respiratory failure J96.02 Sepsis with acute hypoxic respiratory failure A41.9; R65.20; J96.01 Acute exacerbation of chronic obstructive airways disease J44.1 Pneumonia due to COVID-19 virus U07.1; J12.89 Hypokalemia E87.6 Tachyarrhythmia R00.0 Anemia D64.9 Pulmonary edema J81.1
[2020-04-26] MEDS: potassium chloride oral liq 20 mEq/15 mL UDC 40 MEQ PO (09:04)
[2020-04-26] MEDS: lidocaine 1% 5 ML in potassium chloride premix 100 ML 25 ML IV (09:04)
[2020-04-26] MEDS: levofloxacin-dextrose 5 % 750 MG/150 ML PREMIX 100 MG IV (09:42)
[2020-04-26] MEDS: propofol 1,000 MG/100 ML INJ 5.3 MG IV (09:42)
[2020-04-26 10:18] LABS: Magnesium 1.7 mg/dL (1.7-2.3); Potassium 3.2 mmol/L (3.5-5.1)
[2020-04-26] MEDS: adenosine 3 mg/mL SDV 2mL 6 MG IVP (12:29)
[2020-04-26] MEDS: adenosine 3 mg/mL SDV 2mL 12 MG IVP (12:34)
[2020-04-26 13:12] LABS: Glucose Point of Care 226 mg/dL (70-110)
[2020-04-26] MEDS: dextrose 5%-ns + KCl 40 40 MEQ/1,000 ML BAG 75 MEQ IV (15:07)
[2020-04-26] MEDS: sodium chloride 0.9% 500 ML IV (15:12)
[2020-04-26 16:48] LABS: Hemoglobin 8.6 g/dL (11.5-15.3)
[2020-04-26] MEDS: famotidine 20 mg/2 mL INJ IVP (17:06)
[2020-04-26 17:23] LABS: Anion Gap 13.7 (5-19); Blood Urea Nitrogen 33 mg/dL (8-23); Calcium 8.4 mg/dL (8.5-10.5); Carbon Dioxide 32 mmol/L (22-29); Chloride 106 mmol/L (98-107); Glucose 259 mg/dL (65-115); Lactate (Lactic Acid level) 1.4 mmol/L (0.5-2.2); Osmolality Calculated 322 mOsm/kg (285-295); Potassium 3.7 mmol/L (3.5-5.1); Sodium 148 mmol/L (136-145)
[2020-04-26 18:10] LABS: Glucose Point of Care 257 mg/dL (70-110)
[2020-04-26] MEDS: levalbuterol 0.63 mg/3 mL Neb INHALATION (20:33)
[2020-04-26 20:57] LABS: Glucose Point of Care 301 mg/dL (70-110); Glucose Point of Care 311 mg/dL (70-110)
--- NOTE | 2020-04-26 21:24 | PC.NURSE ---
HR maintaning 140's, Dr. Reid notified, T.O. given to titrate off of Levophed and switch to Phenylephrine
[2020-04-26 21:53] LABS: Glucose Point of Care 299 mg/dL (70-110)
[2020-04-26] MEDS: phenylephrine inj 25 MG in sodium chloride 0.9% 250 ML 24.2 MG IV (21:56)
--- NOTE | 2020-04-26 22:18 | PC.NURSE ---
Addendum entered by Wilfredo Borja RN 04/26/20 22:19: Bag approximately half full currently, MAR shows bag should be empy Original Note: Levophed previouslyrunning at 8mcg, decreased to 6mg per MD order
[2020-04-27] VITALS (42 sets, daily range): BP systolic 86–163; BP diastolic 49–88; PULSE 68–136; RESP 14–22; TEMP 36.8–37.2; O2SAT 90–99
[2020-04-27] MEDS: dexamethasone 4 mg/mL INJ 6 MG IVP (01:04)
[2020-04-27] MEDS: piperacillin-tazobactam 3.375 GM in sodium chloride 0.9% (plus) 50 ML IV ×3 (01:05→18:09)
[2020-04-27 02:07] LABS: Glucose Point of Care 235 mg/dL (70-110)
[2020-04-27 02:07] LABS: Glucose Point of Care 475 mg/dL (70-110)
--- NOTE | 2020-04-27 02:08 | PC.NURSE ---
Levophed decreased to 4 mcg then 2 mcg then shut off per MD order, current bag approximately 25% remaining MAR shows bag should have been infused earlier in shift
[2020-04-27] MEDS: levalbuterol 0.63 mg/3 mL Neb INHALATION ×4 (03:09→20:39)
[2020-04-27] MEDS: phenylephrine inj 25 MG in sodium chloride 0.9% 250 ML 66.7 MG IV (04:14)
[2020-04-27 04:40] LABS: ABG PCO2 54.9 mmHg (35-45); ABG PH Result 7.38 (7.35-7.45); Arterial Blood Gas Hematocrit 31.1 % (37-47); Base Excess ABG 5.8 mmol/L (-2.0-2.0); Blood Gas Allen Test Pos; Blood Gas Sample Site Radial, right; Blood Gas Sample Type Arterial; HCO3 ABG 32.1 mmol/L (22-26); Oxygen Device VENT; PO2 ABG 81.4 mmHg (80.0-100.0)
[2020-04-27] MEDS: dextrose 5%-ns + KCl 40 40 MEQ/1,000 ML BAG 75 MEQ IV (04:58)
[2020-04-27] MEDS: vancomycin 1,500 MG/300 ML PIGGYBACK 150 MG IV (05:04)
[2020-04-27] MEDS: remdesivir 100 MG in sodium chloride 0.9% (100 ml) 100 ML IV (05:04)
[2020-04-27] MEDS: famotidine 20 mg/2 mL INJ IVP ×2 (05:05→18:07)
[2020-04-27 05:57] LABS: Estmated Average Glucose 148; Hemoglobin A1C 6.8 % (4.0-6.0)
--- NOTE | 2020-04-27 07:00 | XR_ITS ---
WS: [id number] Exam: XR chest 1V portable [id number] Date/Time of Exam: 04/27/2020 7:05 AM Reason For Exam: vent Comparison 04/25/2020. Marked cardiac enlargement unchanged. Widespread interstitial and airspace infiltrates showing very l ittle change. No pneumothorax. Small right pleural effusion. ET tube remains in good position about 5 cm above the lexy. An NG tube is within the fundus of the stomach however the side-port of the tub e is probably near the gastroesophageal junction. A left-sided IJ catheter is in place unchanged in p osition. The mediastinum is not widened. XR/XR chest 1V portable [id number] IMPRESSION: 1. Cardiac enlargement with extensive bilateral pulmonary infiltrates showing v jocelyn little change. 2. Small right pleural effusion unchanged. 3. Enteric tube in place ending in the fundus of the stomach however the side-p ort of the tube is probably at the GE junction. The tube should be advanced ano ther 4 to 5 cm for optimal position. 4. ET tube remaining in good position.
[2020-04-27 07:22] LABS: Basophils % 0.1 %; Hematocrit 30.7 % (37.0-47.0); Lymphocytes # 0.2 10^3/uL (0.8-4.8); Lymphocytes % 1.7 %; Mean Corpuscular HGB Conc 29.3 g/dL (30.0-36.0); Mean Corpuscular Hemoglobin 27.2 pg (28.0-34.0); Mean Corpuscular Volume 92.7 fL (81-99); Mean Platelet Volume 9.8 fL (7.4-10.4); Monocytes # 0.3 10^3/uL (0.2-0.9); Neutrophils # 9.13 10^3/uL (1.8-7.7); Neutrophils % 94.2 %; Nucleated Red Blood Cells % 0 %; Platelet Count 208 10^3/cmm (130-400); Red Blood Count 3.31 10^6/uL (4.1-5.3); Red Cell Distribution Width 15.9 % (12.1-15.1); White Blood Count 9.7 10^3/uL (4.0-10.0)
[2020-04-27 07:53] LABS: D Dimer 4.02 ug/mIFEU (0-0.59)
[2020-04-27 07:58] LABS: Procalcitonin 0.26 ng/mL (0-0.5); Thyroid Stimulating Hormone 0.22 uIU/mL (0.27-4.20)
[2020-04-27 08:10] LABS: Alanine Aminotransferase 12 U/L (0-33); Albumin Level 2.3 g/dL (3.5-5.2); Alkaline Phosphatase 82 IU/L (35-105); Anion Gap 13.2 (5-19); Aspartate Amino Transferase 24 U/L (0-32); Blood Urea Nitrogen 34 mg/dL (8-23); Calcium 8.5 mg/dL (8.5-10.5); Carbon Dioxide 32 mmol/L (22-29); Chloride 105 mmol/L (98-107); Globulin 3.2 g/dL (1.3-4.6); Glucose 237 mg/dL (65-115); Iron 24 ug/dL (37-145); Lactate Dehydrogenase 417 U/L (135-214); Magnesium 2.3 mg/dL (1.7-2.3); Osmolality Calculated 317 mOsm/kg (285-295); Percent Saturation 20.8 % (20-50); Potassium 4.2 mmol/L (3.5-5.1); Sodium 146 mmol/L (136-145); Total Bilirubin 0.2 mg/dL (0.15-1.2); Total Iron Binding Capacity 115 mcg/dl; Total Protein 5.5 g/dL (6.6-8.7); Unsaturated Iron Binding 91 ug/dL (112-347)
[2020-04-27 08:23] LABS: Ferritin 2032 ng/mL (15-150)
[2020-04-27] MEDS: phenylephrine inj 25 MG in sodium chloride 0.9% 250 ML 27.3 MG IV (08:48)
[2020-04-27 09:00] LABS: Glucose Point of Care 293 mg/dL (70-110)
[2020-04-27 11:48] LABS: Glucose Point of Care 346 mg/dL (70-110)
--- NOTE | 2020-04-27 12:16 | ECG_ITS ---
[facility] ED Test Date: 2020-04-27 Pat Name: Danyell oDuglass Department: Room: ICU19 Gender: Female Equine Dentist: : 1945 Requested By: Tony Thomson Order Number: [id number] Pradeep MD: Jennifer Mercer M.D. Measurements Intervals [place] Rate: 128 P: [place]: QRS: 9 QRSD: 84 T: 70 QT: 297 QTc: 434 Interpretive Statements ATRIAL FIBRILLATION WITH RAPID VENTRICULAR RESPONSE NONSPECIFIC T-WAVE ABNORMALITY ABNORMAL RHYTHM ECG Compared to ECG 04/26/2020 04:19:06 Sinus rhythm no longer present Sinus arrhythmia no longer present T-wave abnormality still present Electronically Signed On 04-29-2020 16:55:31 FUNERAL WORKERS by Jennifer Mercer M.D. [email or web address].[place] [facility] [email or web address].[facility]tri[facility].[employer]/store/OV/[id number]
[2020-04-27 13:39] LABS: ABG PCO2 52.5 mmHg (35-45); ABG PH Result 7.34 (7.35-7.45); Alveolar-Arterial Oxygen Gradi 49.7 mmHg (5-10); Arterial Blood Gas Hematocrit 31.4 % (37-47); Base Excess ABG 1.7 mmol/L (-2.0-2.0); Blood Gas Allen Test Pos; Blood Gas Operator Identificat CAK; Blood Gas Sample Site Radial, left; Blood Gas Sample Type Arterial; Carboxyhemoglobin 0.9 %THgb (0.4-20.1); HCO3 ABG 28.2 mmol/L (22-26); Ionized Calcium Level - ABG 1.2 mmol/L (1.1-1.4); Methemoglobin 0.8 % (0.4-1.5); Oxygen Device VENT; Oxygen Saturation ABG 90.5; PO2 ABG 59.6 mmHg (80.0-100.0); Potassium Level - ABG 4.3 mmol/L (3.5-5.0); Total Hemoglobin 10.2 g/dL (12-16)
[2020-04-27] MEDS: phenylephrine inj 25 MG in sodium chloride 0.9% 250 ML 60.6 MG IV (13:47)
--- NOTE | 2020-04-27 16:13 | USCV_ITS ---
Danyell Douglass Age: 75 Gender: F : 1945 Exam Date: 04/27/2020 09:50 Ordering Phys: Tony Thomson MD Technologist: Anni Reeves [place] [facility] [place]: RESP FAILURE. ON VENT COVID ICU BP: 116 / 94 HR: 116 Rhythm: Sinus Technical Quality: Adequate MEASUREMENTS (Male / Female) Normal Values 2D ECHO LV Diastolic Diameter PLAX 3.0 cm 4.2 - 5.9 / 3.9 - 5.3 cm LV Systolic Diameter PLAX 2.7 cm LV Chamber Size 2.0 cm IVS Diastolic Thickness 1.3 cm 0.6 - 1.0 / 0.6 - 0.9 cm IVS Systolic Thickness 1.4 cm LVPW Diastolic Thickness 1.3 cm 0.6 - 1.0 / 0.6 - 0.9 cm LVPW Systolic Thickness 1.5 cm RV Chamber Size 2.5 cm LVOT Diameter 2.0 cm LV Ejection Fraction 2D Teich 20.0 % LV Ejection Fraction MOD 2C 57.6 % LV Ejection Fraction 2C AL 59.7 % LA Diameter 3.3 cm LA Width 2.7 cm LA Height 3.2 cm RA Width 2.5 cm RA Height 3.0 cm Aorta at Sinotubular Diameter 3.3 cm M-MODE LV Diastolic Diameter MM 3.9 cm 4.2 - 5.9 / 3.9 - 5.3 cm LV Systolic Diameter MM 2.5 cm LV Ejection Fraction MM Teich 65.3 % IVS Diastolic Thickness MM 0.9 cm 0.6 - 1.0 / 0.6 - 0.9 cm IVS Systolic Thickness MM 1.3 cm LVPW Diastolic Thickness MM 0.8 cm 0.6 - 1.0 / 0.6 - 0.9 cm LVPW Systolic Thickness MM 1.3 cm RV Diastolic Diameter MM 1.7 cm Aortic Annulus Diameter 3.4 cm LA Ao Ratio MM 1.1 MV E Point Septal Separation 0.3 cm DOPPLER AV Peak Velocity 175.0 cm/s LVOT Peak Velocity 119.0 cm/s AV Area Cont Eq vti 2.0 cm squared AV Area Cont Eq pk 2.2 cm squared MV Area PHT 3.7 cm squared Mitral E to A Ratio 1.7 MV E' Velocity 55.5 cm/s Mitral E to MV E' Ratio 8.6 Mitral E to LV E' Lateral Ratio 7.1 Mitral E to LV E' Septal Ratio 11.1 TR Peak Velocity 371.9 cm/s TR Peak Gradient 55.3 mmHg TR Mean Velocity 314.2 cm/s TR Mean Gradient 42.4 mmHg TR Velocity Time Integral 51.2 cm TV Peak E Velocity 78.0 cm/s Right Atrial Pressure 15.0 mmHg Pulmonary Artery Systolic Pressu 70.3 mmHg FINDINGS Left Ventricle Normal left ventricular size and systolic function, EF 59 %. No regional wall motion abnormalities. Right Ventricle The right ventricle is normal in size and function. Right Atrium The right atrium is normal in size. Left Atrium The left atrium is normal in size. Mitral Valve No gross abnormalities noted Aortic Valve Gross abnormalities noted. Tricuspid Valve Moderate tricuspid valve regurgitation. Estimated pulmonary artery peak systolic pressure was 70 mmHg Pulmonic Valve Structurally normal pulmonic valve without significant stenosis. There is no pulmonic regurgitation. Pericardium Normal pericardium without effusion. Aorta Normal ascending aorta dimension. CONCLUSIONS Normal left ventricular size and systolic function, EF 59 %. No regional wall motion abnormalities. Normal chamber sizes. Moderate tricuspid valve regurgitation. Estimated pulmonary artery peak systolic pressure was 70 mmHg. There is no pericardial effusion. There are no intracardiac masses. No previous study is available for comparison. Dr Benja Cooney MD [facility] (Electronically Signed) Final Date: 28 April 2020 02:44 S
--- NOTE | 2020-04-27 16:19 | PM.PN ---
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 Initial laboratory workup on arrival showed WBC of 8.6, hemoglobin of 10.0, hematocrit 35.1 and platelet count of 237. sodium 145, potassium 2.5, chloride 96, bicarb 38, BUN 30 and creatinine 0.7. AST of 37, ALT of 25 and alkaline phosphatase of 1 1. magnesium of 2.0. Troponin - T baseline 44, 42.90 at 120 min. CRP of 270.9. Influenza A/B negative. Chest x-ray showed bilateral pneumonia with possible superimposed pulmonary edema, dense consolidation in the right lung base and post obstructive changes related to possible central obstructive neoplasm. CTA Chest PE protocol was then performed which did not show any evidence of PE however again noted multi-lobar ground glass opacities with dense consolidation right RML/RLL. Also loss of air bronhograms with in the right lower lobe and obstruction of right lower lobe main bronchus suspecious for a discrete mass. Initial ABG pH of 7.29, pCO2 of 75.7, PO2 of 35.8 on nasal cannula. Patient was subsequently intubated and placed on mechanical ventilation. Repeat ABG showed 7.42, pCO2 of 53.8, Po2 of 64.2 and HCO3 of 35.1 on VC/AC In ER patient was given Decadron 10 mg IV x 1, Duoneb, Lasix 40 mg IV x 1, Lorazepam 2 mg IVP x 1 Mucomyst, Lovenox 70 mg SQx 1. K-rider 40 meq x 1, and 1 L NS bolus. Admitted to VICU where patient was continued on decadron 6 mg IV daily and initiated on Remdesivir 200mg iv x 1 followed by 100 mg IV daily. Also started on broad spectrum antibiotics with vancomycin pharmacy to dose, zosyn 3.375g IV. Additional potassium was replaced and also due to high risk she was started on lovenox 70 mg SQ BID. Shortly after admission she was found to be tachycardic. Initially appeared to be in SVT. She was given adenosine 6 mg x 1 and after no response 12 mg IV x 1. Did show minimal response however rate increased to 180s. Was noted to have hypotension and clinically appeared dry. 500 cc bolus of NS was given. After blood pressure improved Cardizem 10 mg x 2 was given a few hours apart. Later was also started on amiodarone gtt. Do to worsening hypotension she was up-titrated on levophed to 10. Consideration for cardioversion due to unstable arrhythmia however after discussion with family code stats was change to limited avoiding shock, cpr allowing only for continuation of ventilator support. Hb from admission had decreased to 7.3. No obvious source of bleed however given vitals she was transfused with 1 unit of PRBC. In light of this lovenox was held. Magnesium was found to be 1.7. Mag sulfate 1 g iv x 1 was given. K was found to be 2.2 after replacement this had imrpoved to 3.2. Patient remained sedated with fentanyl. Propofol was being weaned down and versed was initated. Due to hydrodynamic instability, cardiac arrhythmias patient was not placed in prone position with addition of NMB. Fio2 had been weaned to 70% which was maintained. 04/27 Patient improving. Amiodarone gtt completed. Rate improved. Noted to havea Tmax of 102. Weaning fio2, urine out put adequate Medications: Reviewed: Yes Vitals/I&O/Wt Last Vital Signs Temp 98.5 F 04/28/20 14:00 Pulse 130 H 04/28/20 14:45 Resp 24 H 04/28/20 15:23 BP 101/69 04/28/20 14:00 Pulse Ox 93 04/28/20 14:39 04/28/20 04/28/20 04/28/20 06:59 14:59 22:59 Intake Total 350.275 / 2703.983 955.515 / 955.515 Output Total 350 / 850 225 / 225 Balance 0.275 / 1853.983 730.515 / 730.515 Physical Exam Narrative: EXAM NARRATIVE: General -chronic ill-appearing on mechanical ventilation HEENT -ET tube in place Chest- mechanical ventilation / Left. medi-port CVS- tachy Abdomen- non-distended : mccarthy Extremities- no edema Urinary Catheter Management^: Mccarthy: Cath Placed During This Visit: yes Reason for Continuing Indwelling Catheter: Accurate Measurement of Urinary Output in Critically Ill Patients Urinary Catheter Date of Insertion: 04/25/20 Data : 04/28/20 03:20 04/28/20 03:20 Micro: Microbiology 04/26/20 01:40 Gram Stain - Final Sputum - Endotracheal Tube Aspirate Sputum Culture - Final A&P Assessment and plan (1) Acute hypercapnic respiratory failure: Status: Acute (2) Sepsis with acute hypoxic respiratory failure: Status: Acute (3) Acute exacerbation of chronic obstructive airways disease: Status: Acute (4) Pneumonia due to COVID-19 virus: Status: Acute (5) Hypokalemia: Status: Acute (6) Tachyarrhythmia: Status: Acute (7) Anemia: Status: Acute (8) Pulmonary edema: Status: Acute Acute on chronic hypoxic/hypercapnic respiratory failure s/p Mechanical Ventilation - Etiology multi-factorial - COVID 19 vs superimposed bacterial pneumonia vs pulmonary edema vs possible underlying lung cancer vs COPD - Currently on VC, TV 400, RR 14, PIP 32, Pplateau 30, PEEP of 10, MV 5.8 Lung compliance 19, airway resistance 15, FiO2 at 85%. - Continue above vent settings for now, Wean Fio2 as tolerated. - Monitor Pplateau pressure q4hr, Goal < 30 - Xopnex q6hr scheduled - D-dimer 4.02 - > Lovenox ppx dose - Continue propofol - wean as tolerated, fentanyl - Add versed PRN - May consider proning in am - Maintain MAP > 65 - Wean IV pressors as tolerated - Repeat ABG in AM or PRN - Chest x-ray in AM - Will consider pulmonary consult if worsening Sepsis due to COVID 19 pneumonia with hypotension - Tmax 102 - Possible super-imposed bacterial/ post obstructive - Low suspicion of bacterial - Check Pro-calcitonin - 0.21 - Blood culture x 2 - NGTD - Sputum culture - Bacterial ag - pending - Lactic acid now - Continue vancomycin pharmacy to dose - Continue zosyn 3.375g IV q8hr - Continue Remdesivir 5 days total - Continue Decadron 6mg daily x total 10 days - Check Ferritin, CRP, Pro-luz elena, d-dimer q2 days Suspected congestive heart failure exacerabtion / vs non-cardiogenic pulmonary edema - unspecified type - no prior echo - Will obtain ECHO - Lasix 40 mg IV x 1 in ER - Check daily weight / Urine output - ECHO ordered - Pending P. Atrial Fib with RVR now rate controlled - Elevated troponin - 44 - > 42.9 - s/p adenosine 6mg / 12 mg - no response - Amiodarone switched to PO 400mg BID x 7 day - ECHO ordered - perform once HR < 100 - Consider cardiology consult - May consider starting lower therapeutic dose of ac - Risk for CVA Acute anemia - Hb 10.0- > 7.3 - > 9.7 - S/P 1 unit of PRBC - Repeat h/h - May cautiously resume anticoagulation Hx of Lung cancer - Unclear prior type and chemo plan - Obtain records from PCP in am Diabetes Mellitus - Monitor blood sugar q4hr - Goal BS < 180 Gi ppx - Pepcid 20 mg IV BID DVT ppx - Lovenox 40 mg SQ daily - change to BID CODE STATUS : DNR Limited Attestations Medical Necessity Statement*: Continue current management for respiratory faliure 2/2 covid-19 pneumonia Time Spent in Patient Care: Greater than 35 minutes (>than 50% of time spent in counselling and/or direct pt care on unit). Critical Care Time: Critical Care Time (min): 50 Coding Level of Care Code Acute Clock Repairer for g Fwd Diagnoses Acute hypercapnic respiratory failure J96.02 Sepsis with acute hypoxic respiratory failure A41.9; R65.20; J96.01 Acute exacerbation of chronic obstructive airways disease J44.1 Pneumonia due to COVID-19 virus U07.1; J12.89 Hypokalemia E87.6 Tachyarrhythmia R00.0 Anemia D64.9 Pulmonary edema J81.1
--- NOTE | 2020-04-27 17:04 | PC.RESP ---
Pulmonary Rehab information sent to patient.
[2020-04-27 17:17] LABS: Glucose Point of Care 299 mg/dL (70-110)
[2020-04-27] MEDS: enoxaparin 40 mg/0.4 mL Syringe SUBCUT (18:07)
[2020-04-27] MEDS: phenylephrine inj 25 MG in sodium chloride 0.9% 250 ML 54.5 MG IV (18:22)
[2020-04-27 20:40] LABS: Glucose Point of Care 213 mg/dL (70-110)
[2020-04-28] VITALS (40 sets, daily range): BP systolic 96–157; BP diastolic 58–84; PULSE 68–148; RESP 22–25; TEMP 36.6–39.3; O2SAT 80–95
[2020-04-28] MEDS: dexamethasone 4 mg/mL INJ 6 MG IVP (02:01)
[2020-04-28] MEDS: piperacillin-tazobactam 3.375 GM in sodium chloride 0.9% (plus) 50 ML IV ×3 (02:02→18:26)
[2020-04-28] MEDS: levalbuterol 0.63 mg/3 mL Neb INHALATION ×4 (03:06→20:00)
[2020-04-28 03:52] LABS: Basophils % 0.2 %; Hematocrit 33.4 % (37.0-47.0); Hemoglobin 9.7 g/dL (11.5-15.3); Lymphocytes # 0.4 10^3/uL (0.8-4.8); Lymphocytes % 3.2 %; Mean Corpuscular Hemoglobin 26.6 pg (28.0-34.0); Mean Corpuscular Volume 91.5 fL (81-99); Mean Platelet Volume 9.7 fL (7.4-10.4); Monocytes # 0.3 10^3/uL (0.2-0.9); Monocytes % 3.1 %; Neutrophils # 9.87 10^3/uL (1.8-7.7); Neutrophils % 91.6 %; Nucleated Red Blood Cells % 0.4 %; Platelet Count 168 10^3/cmm (130-400); Red Blood Count 3.65 10^6/uL (4.1-5.3); Red Cell Distribution Width 16.7 % (12.1-15.1); White Blood Count 10.8 10^3/uL (4.0-10.0)
[2020-04-28 04:25] LABS: Alanine Aminotransferase 13 U/L (0-33); Albumin Level 2.3 g/dL (3.5-5.2); Alkaline Phosphatase 102 IU/L (35-105); Anion Gap 10.6 (5-19); Aspartate Amino Transferase 19 U/L (0-32); Blood Urea Nitrogen 41 mg/dL (8-23); Calcium 8.7 mg/dL (8.5-10.5); Carbon Dioxide 30 mmol/L (22-29); Chloride 112 mmol/L (98-107); Glucose 171 mg/dL (65-115); Osmolality Calculated 320 mOsm/kg (285-295); Potassium 4.6 mmol/L (3.5-5.1); Sodium 148 mmol/L (136-145); Total Bilirubin 0.3 mg/dL (0.15-1.2); Total Protein 5.3 g/dL (6.6-8.7)
[2020-04-28 04:46] LABS: ABG PCO2 53.6 mmHg (35-45); ABG PH Result 7.35 (7.35-7.45); Arterial Blood Gas Hematocrit 38.3 % (37-47); Base Excess ABG 2.8 mmol/L (-2.0-2.0); Blood Gas Allen Test Pos; Blood Gas Operator Identificat JB; Blood Gas Sample Site Radial, right; Blood Gas Sample Type Arterial; HCO3 ABG 29.5 mmol/L (22-26); Oxygen Device VENT; PO2 ABG 64.1 mmHg (80.0-100.0)
[2020-04-28] MEDS: phenylephrine inj 25 MG in sodium chloride 0.9% 250 ML 54.5 MG IV ×2 (04:48→09:45)
[2020-04-28] MEDS: vancomycin 1,500 MG/300 ML PIGGYBACK 150 MG IV (04:54)
[2020-04-28] MEDS: famotidine 20 mg/2 mL INJ IVP ×2 (06:13→18:29)
[2020-04-28] MEDS: remdesivir 100 MG in sodium chloride 0.9% (100 ml) 100 ML IV (06:14)
[2020-04-28 06:41] LABS: Glucose Point of Care 193 mg/dL (70-110)
[2020-04-28 11:21] LABS: Glucose Point of Care 211 mg/dL (70-110)
[2020-04-28] MEDS: FUROsemide 10 mg/mL SDV 2mL 20 MG IVP (12:58)
[2020-04-28] MEDS: amiodarone 200 mg Tablet 400 MG OG-TUBE ×2 (13:00→15:53)
--- NOTE | 2020-04-28 16:30 | P.PN_ITS ---
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 Initial laboratory workup on arrival showed WBC of 8.6, hemoglobin of 10.0, hematocrit 35.1 and platelet count of 237. sodium 145, potassium 2.5, chloride 96, bicarb 38, BUN 30 and creatinine 0.7. AST of 37, ALT of 25 and alkaline phosphatase of 1 1. magnesium of 2.0. Troponin - T baseline 44, 42.90 at 120 min. CRP of 270.9. Influenza A/B negative. Chest x-ray showed bilateral pneumonia with possible superimposed pulmonary edema, dense consolidation in the right lung base and post obstructive changes related to possible central obstructive neoplasm. CTA Chest PE protocol was then performed which did not show any evidence of PE however again noted multi-lobar ground glass opacities with dense consolidation right RML/RLL. Also loss of air bronhograms with in the right lower lobe and obstruction of right lower lobe main bronchus suspecious for a discrete mass. Initial ABG pH of 7.29, pCO2 of 75.7, PO2 of 35.8 on nasal cannula. Patient was subsequently intubated and placed on mechanical ventilation. Repeat ABG showed 7.42, pCO2 of 53.8, Po2 of 64.2 and HCO3 of 35.1 on VC/AC In ER patient was given Decadron 10 mg IV x 1, Duoneb, Lasix 40 mg IV x 1, Lorazepam 2 mg IVP x 1 Mucomyst, Lovenox 70 mg SQx 1. K-rider 40 meq x 1, and 1 L NS bolus. Admitted to VICU where patient was continued on decadron 6 mg IV daily and initiated on Remdesivir 200mg iv x 1 followed by 100 mg IV daily. Also started on broad spectrum antibiotics with vancomycin pharmacy to dose, zosyn 3.375g IV. Additional potassium was replaced and also due to high risk she was started on lovenox 70 mg SQ BID. Shortly after admission she was found to be tachycardic. Initially appeared to be in SVT. She was given adenosine 6 mg x 1 and after no response 12 mg IV x 1. Did show minimal response however rate increased to 180s. Was noted to have hypotension and clinically appeared dry. 500 cc bolus of NS was given. After blood pressure improved Cardizem 10 mg x 2 was given a few hours apart. Later was also started on amiodarone gtt. Do to worsening hypotension she was up- titrated on levophed to 10. Consideration for cardioversion due to unstable arrhythmia however after discussion with family code stats was change to limited avoiding shock, cpr allowing only for continuation of ventilator support. Hb from admission had decreased to 7.3. No obvious source of bleed however given vitals she was transfused with 1 unit of PRBC. In light of this lovenox was held. Magnesium was found to be 1.7. Mag sulfate 1 g iv x 1 was given. K was found to be 2.2 after replacement this had imrpoved to 3.2. Patient remained sedated with fentanyl. Propofol was being weaned down and versed was initated. Due to hydrodynamic instability, cardiac arrhythmias patient was not placed in prone position with addition of NMB. Fio2 had been weaned to 70% which was maintained. 04/27 Patient improving. Amiodarone gtt completed. Rate improved. Noted to havea Tmax of 102. Weaning fio2, urine out put adequate 04/28 Patient remained afebrile overnight. continued to slowly improve. Vitals remained stable. Medications: Reviewed: Yes Vitals/I&O/Wt Last Vital Signs Temp 98.5 F 04/28/20 14:00 Pulse 130 H 04/28/20 14:45 Resp 24 H 04/28/20 15:23 BP 101/69 04/28/20 14:00 Pulse Ox 93 04/28/20 14:39 04/28/20 04/28/20 04/28/20 06:59 14:59 22:59 Intake Total 350.275 / 2703.983 955.515 / 955.515 Output Total 350 / 850 225 / 225 Balance 0.275 / 1853.983 730.515 / 730.515 Physical Exam Narrative: EXAM NARRATIVE: General -chronic ill-appearing on mechanical ventil ation HEENT -ET tube in place Chest- mechanical ventilation / Left. medi-port CVS- tachy Abdomen- non-distended : mccarthy Extremities- no edema Urinary Catheter Management^: Mccarthy: Cath Placed During This Visit: yes Reason for Continuing Indwelling Catheter: Accurate Measurement of Urinary Output in Critically Ill Patients Urinary Catheter Date of Insertion: 04/25/20 Data : 04/28/20 03:20 04/28/20 03:20 Micro: Microbiology 04/26/20 01:40 Gram Stain - Final Sputum - Endotracheal Tube Aspirate Sputum Culture - Final A&P Assessment and plan (1) Acute hypercapnic respiratory failure: Status: Acute (2) Sepsis with acute hypoxic respiratory failure: Status: Acute (3) Acute exacerbation of chronic obstructive airways disease: Status: Acute (4) Pneumonia due to COVID-19 virus: Status: Acute (5) Hypokalemia: Status: Acute (6) Tachyarrhythmia: Status: Acute (7) Anemia: Status: Acute (8) Pulmonary edema: Status: Acute Acute on chronic hypoxic/hypercapnic respiratory failure s/p Mechanical Ventilation - Etiology multi-factorial - COVID 19 vs superimposed bacterial pneumonia vs pulmonary edema vs possible underlying lung cancer vs COPD - Monitor Pplateau pressure q4hr, Goal < 30 - Xopnex q6hr scheduled - D-dimer 4.02 - > Lovenox 40 mg SQ BID - Continue propofol - wean as tolerated, fentanyl - Add versed PRN - May consider proning however improving - Maintain MAP > 65 - Wean IV pressors as tolerated - Repeat ABG in AM or PRN - Chest x-ray in AM - Will consider pulmonary consult if worsening Sepsis due to COVID 19 pneumonia with hypotension - Tmax 102 - Possible super-imposed bacterial/ post obstructive - Low suspicion of bacterial - Check Pro-calcitonin - 0.21 - Blood culture x 2 - NGTD - Sputum culture - Continue vancomycin pharmacy to dose - Continue zosyn 3.375g IV q8hr - Continue Remdesivir 5 days total - Continue Decadron 6mg daily x total 10 days - Check Ferritin, CRP, Pro-luz elena, d-dimer q2 days Suspected congestive heart failure exacerabtion / vs non-cardiogenic pulmonary edema - unspecified type - no prior echo - Lasix 40 mg IV x 1 in ER - Check daily weight / Urine output - ECHO noted - Lasix 20 mg IV x 1 given today P. Atrial Fib with RVR now rate controlled - Elevated troponin - 44 - > 42.9 - s/p adenosine 6mg / 12 mg - no response - Amiodarone switched to PO 400mg BID x 7 day - ECHO - pEF - Consider cardiology consult - Lovenox 40 mg SQ BID ( lower dose due to anemia ) - Risk for CVA Acute anemia - Hb 10.0- > 7.3 - > 9.7 - S/P 1 unit of PRBC - Repeat h/h - ON anticoagulation - Monitor for bleeding Hx of Lung cancer - Unclear prior type and chemo plan - Obtain records from PCP in am Diabetes Mellitus - Monitor blood sugar q4hr - Goal BS < 180 Gi ppx - Pepcid 20 mg IV BID DVT ppx - Lovenox 40 mg SQ daily - change to BID CODE STATUS : DNR Limited Attestations Medical Necessity Statement*: Will require further hospitalization for man agement of hypoxic respiratory failure requiring vent support. Time Spent in Patient Care: Greater than 35 minutes (>than 50% of time spent in counselling and/or direct pt care on unit) . Critical Care Time: Critical Care Time (min): 45 Coding Level of Care Code Acute Drop Machine Operator for [facility] Fwd Diagnoses Acute hypercapnic respiratory failure J96.02 Sepsis with acute hypoxic respiratory failure A41.9; R65.20; J96.01 Acute exacerbation of chronic obstructive airways disease J44.1 Pneumonia due to COVID-19 virus U07.1; J12.89 Hypokalemia E87.6 Tachyarrhythmia R00.0 Anemia D64.9 Pulmonary edema J81.1
[2020-04-28 16:55] LABS: Glucose Point of Care 276 mg/dL (70-110)
[2020-04-28] MEDS: enoxaparin 40 mg/0.4 mL Syringe SUBCUT (18:27)
--- NOTE | 2020-04-28 18:58 | ECG_ITS ---
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 Measurements Intervals [place] Rate: 87 P: 49 KS: 131 QRS: 18 QRSD: 84 T: 41 QT: 354 QTc: 428 Interpretive Statements SINUS RHYTHM POSSIBLE RIGHT VENTRICULAR CONDUCTION DELAY [RSR (QR) IN V1/V2] PROBABLE SEPTAL MYOCARDIAL INFARCTION [35 ms Q WAVE IN V1/V2], PROBABLY OLD Compared to ECG 04/27/2020 12:30:22 Myocardial infarct finding now present Atrial fibrillation no longer present T-wave abnormality no longer present Electronically Signed On 04-29-2020 16:55:24 SALES CONTRACTOR by Jennifer Mercer M.D. [email or web address] Insuranceking's daughters medical centerAnShuo Information Technologym[facility].[employer]/store/[id number]
[2020-04-28] MEDS: phenylephrine inj 25 MG in sodium chloride 0.9% 250 ML 18.2 MG IV (19:14)
[2020-04-28] MEDS: metoprolol tartrate 1 mg/1 mL SDV 5 mL 5 MG IV (19:24)
--- NOTE | 2020-04-28 20:26 | PC.NURSE ---
Flush og with 100 ml of water Q 8 hrs and check residual Q [address] Santana
[2020-04-28 23:46] LABS: Glucose Point of Care 216 mg/dL (70-110)
[2020-04-29] VITALS (44 sets, daily range): BP systolic 91–134; BP diastolic 55–86; PULSE 71–140; RESP 20–26; TEMP 36.8–37.4; O2SAT 81–95
[2020-04-29] MEDS: dexamethasone 4 mg/mL INJ 6 MG IVP (01:34)
[2020-04-29] MEDS: piperacillin-tazobactam 3.375 GM in sodium chloride 0.9% (plus) 50 ML IV ×3 (01:35→17:11)
[2020-04-29] MEDS: levalbuterol 0.63 mg/3 mL Neb INHALATION ×4 (02:08→20:12)
[2020-04-29 03:53] LABS: ABG PH Result 7.41 (7.35-7.45); Arterial Blood Gas Hematocrit 37.7 % (37-47); Base Excess ABG 4.4 mmol/L (-2.0-2.0); Blood Gas Allen Test Pos; Blood Gas Sample Type Arterial; HCO3 ABG 29.9 mmol/L (22-26)
[2020-04-29 03:55] LABS: Blood Gas Operator Identificat CAK; Blood Gas Sample Site Radial, left; Oxygen Device VENT
[2020-04-29] MEDS: phenylephrine inj 25 MG in sodium chloride 0.9% 250 ML 18.2 MG IV (04:21)
[2020-04-29] MEDS: vancomycin 1,500 MG/300 ML PIGGYBACK 150 MG IV (04:22)
[2020-04-29 05:33] LABS: Glucose Point of Care 199 mg/dL (70-110)
[2020-04-29] MEDS: famotidine 20 mg/2 mL INJ IVP ×2 (05:37→17:14)
[2020-04-29] MEDS: enoxaparin 40 mg/0.4 mL Syringe SUBCUT ×2 (05:37→17:13)
[2020-04-29] MEDS: remdesivir 100 MG in sodium chloride 0.9% (100 ml) 100 ML IV (05:37)
[2020-04-29 05:44] LABS: Basophils % 0.2 %; Hematocrit 32.6 % (37.0-47.0); Hemoglobin 9.4 g/dL (11.5-15.3); Lymphocytes # 0.2 10^3/uL (0.8-4.8); Mean Corpuscular HGB Conc 28.8 g/dL (30.0-36.0); Mean Corpuscular Hemoglobin 26.6 pg (28.0-34.0); Mean Corpuscular Volume 92.4 fL (81-99); Mean Platelet Volume 10.3 fL (7.4-10.4); Monocytes # 0.3 10^3/uL (0.2-0.9); Monocytes % 3.6 %; Neutrophils # 8.44 10^3/uL (1.8-7.7); Neutrophils % 92.2 %; Nucleated Red Blood Cells % 0.4 %; Platelet Count 100 10^3/cmm (130-400); Red Blood Count 3.53 10^6/uL (4.1-5.3); Red Cell Distribution Width 17.1 % (12.1-15.1); White Blood Count 9.2 10^3/uL (4.0-10.0)
[2020-04-29 06:04] LABS: D Dimer 19.36 ug/mIFEU (0-0.59)
[2020-04-29 06:17] LABS: C Reactive Protein 108.8 mg/L (0.0-4.9)
[2020-04-29 06:21] LABS: Procalcitonin 0.14 ng/mL (0-0.5); Vancomycin Trough 11.8 ug/mL (10-15)
[2020-04-29 06:23] LABS: Alanine Aminotransferase 9 U/L (0-33); Albumin Level 2.1 g/dL (3.5-5.2); Alkaline Phosphatase 99 IU/L (35-105); Anion Gap 13.2 (5-19); Aspartate Amino Transferase 12 U/L (0-32); Blood Urea Nitrogen 47 mg/dL (8-23); Calcium 8.3 mg/dL (8.5-10.5); Carbon Dioxide 29 mmol/L (22-29); Chloride 113 mmol/L (98-107); Globulin 2.7 g/dL (1.3-4.6); Glucose 193 mg/dL (65-115); Osmolality Calculated 330 mOsm/kg (285-295); Potassium 4.2 mmol/L (3.5-5.1); Sodium 151 mmol/L (136-145); Total Bilirubin 0.3 mg/dL (0.15-1.2); Total Protein 4.8 g/dL (6.6-8.7)
[2020-04-29 06:43] LABS: Lactate Dehydrogenase 379 U/L (135-214)
--- NOTE | 2020-04-29 07:00 | XR_ITS ---
WS: [id number] Exam: XR chest 1V portable [id number] Date/Time of Exam: 04/29/2020 6:01 AM Reason For Exam: respiratory failure Comparison 04/27/2020. Extensive bilateral pulmonary infiltrates are noted which show little change. Right-sided pleural eff usion. The heart is enlarged but somewhat decreased in size since the prior study. The ET tube is now ending at the lexy and should be retracted approximately 4 cm for optimal position. An NG tube is looped in the stomach with the tip is not visible. A left-sided central line is noted and probably en ds in the left brachiocephalic vein. Small left pleural effusion. Monitoring leads superimpose the ch est. XR/XR chest 1V portable [id number] IMPRESSION: 1. Extensive bilateral pulmonary infiltrates unchanged. Bilateral pleural effus ions. 2. Decreased heart size. 3. The endotracheal tube has advanced and now ends at the lexy directed towar d the right mainstem bronchus. The tube should be retracted about 4 cm for opti mal position. These findings were discussed by phone with the patient's nurse Aida in the ICU at 8:26 AM 04/29/2020.
[2020-04-29 07:07] LABS: Ferritin 1241 ng/mL (15-150)
[2020-04-29 07:57] LABS: Magnesium 2.2 mg/dL (1.7-2.3)
--- NOTE | 2020-04-29 08:41 | PC.NURSE ---
Dr. Dhaliwal; Radiologist called to report ET tube had shifted downwards since placement XR completed, and to pull back 4-5 cm. RN updated dayshift RN assigned to patient car\e on findings and orders.
[2020-04-29] MEDS: amiodarone 200 mg Tablet 400 MG OG-TUBE ×2 (09:45→17:36)
[2020-04-29 12:46] LABS: Glucose Point of Care 198 mg/dL (70-110)
[2020-04-29] MEDS: FUROsemide 10 mg/mL SDV 2mL 20 MG IVP (14:15)
[2020-04-29 16:26] LABS: ABG PH Result 7.19 (7.35-7.45); Alveolar-Arterial Oxygen Gradi 63.6 mmHg (5-10); Arterial Blood Gas Hematocrit 34.2 % (37-47); Base Excess ABG -0.5 mmol/L (-2.0-2.0); Blood Gas Allen Test Pos; Blood Gas Operator Identificat MONRO; Blood Gas Sample Site Radial, left; Blood Gas Sample Type Arterial; HGB O2 Sat 86.5 % (95-100); Ionized Calcium Level - ABG 1.3 mmol/L (1.1-1.4); Methemoglobin 0.9 % (0.4-1.5); Oxygen Device VENT; Oxygen Saturation ABG 88.2; PO2 ABG 67.2 mmHg (80.0-100.0); Potassium Level - ABG 4.9 mmol/L (3.5-5.0); Total Hemoglobin 11.2 g/dL (12-16)
[2020-04-29 16:30] LABS: ABG PCO2 75.2 mmHg (35-45)
--- NOTE | 2020-04-29 16:58 | XR_ITS ---
WS: [id number] Exam: XR chest 1V portable [id number] Date/Time of Exam: 04/29/2020 5:09 PM Reason For Exam: increased o2 needs Comparison 04/29/2020 at 0621 hours. Bilateral pulmonary infiltrates show no change since prior study. The ET tube is been retracted and n ow ends about 3 cm above the lexy in good position. An enteric tube extends into the stomach but th e tip is not visualized. Left subclavian port probably ends in the left brachiocephalic vein. Heart s ize is top limits normal. No pneumothorax. Bibasal pleural effusions noted most marked on the right. Compressive atelectasis of the middle and lower lobes the right lung. XR/XR chest 1V portable [id number] IMPRESSION: 1. The ET tube is been repositioned since the previous exam and now ends about 3 cm above the lexy in good position. The remaining aspects the chest are unc hanged since the most recent exam.
[2020-04-29 17:39] LABS: ABG PH Result 7.26 (7.35-7.45); Arterial Blood Gas Hematocrit 33.9 % (37-47); Blood Gas Allen Test Pos; Blood Gas Sample Type Arterial; HCO3 ABG 28.2 mmol/L (22-26)
[2020-04-29 17:40] LABS: Blood Gas Operator Identificat CAK; Blood Gas Sample Site Radial, left; Oxygen Device VENT
[2020-04-29 18:27] LABS: Glucose Point of Care 184 mg/dL (70-110)
[2020-04-29 19:49] LABS: Glucose Point of Care 203 mg/dL (70-110)
--- NOTE | 2020-04-29 21:20 | P.PN_ITS ---
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 Initial laboratory workup on arrival showed WBC of 8.6, hemoglobin of 10.0, hematocrit 35.1 and platelet count of 237. sodium 145, potassium 2.5, chloride 96, bicarb 38, BUN 30 and creatinine 0.7. AST of 37, ALT of 25 and alkaline phosphatase of 1 1. magnesium of 2.0. Troponin - T baseline 44, 42.90 at 120 min. CRP of 270.9. Influenza A/B negative. Chest x-ray showed bilateral pneumonia with possible superimposed pulmonary edema, dense consolidation in the right lung base and post obstructive changes related to possible central obstructive neoplasm. CTA Chest PE protocol was then performed which did not show any evidence of PE however again noted multi-lobar ground glass opacities with dense consolidation right RML/RLL. Also loss of air bronhograms with in the right lower lobe and obstruction of right lower lobe main bronchus suspecious for a discrete mass. Initial ABG pH of 7.29, pCO2 of 75.7, PO2 of 35.8 on nasal cannula. Patient was subsequently intubated and placed on mechanical ventilation. Repeat ABG showed 7.42, pCO2 of 53.8, Po2 of 64.2 and HCO3 of 35.1 on VC/AC In ER patient was given Decadron 10 mg IV x 1, Duoneb, Lasix 40 mg IV x 1, Lorazepam 2 mg IVP x 1 Mucomyst, Lovenox 70 mg SQx 1. K-rider 40 meq x 1, and 1 L NS bolus. Admitted to VICU where patient was continued on decadron 6 mg IV daily and initiated on Remdesivir 200mg iv x 1 followed by 100 mg IV daily. Also started on broad spectrum antibiotics with vancomycin pharmacy to dose, zosyn 3.375g IV. Additional potassium was replaced and also due to high risk she was started on lovenox 70 mg SQ BID. Shortly after admission she was found to be tachycardic. Initially appeared to be in SVT. She was given adenosine 6 mg x 1 and after no response 12 mg IV x 1. Did show minimal response however rate increased to 180s. Was noted to have hypotension and clinically appeared dry. 500 cc bolus of NS was given. After blood pressure improved Cardizem 10 mg x 2 was given a few hours apart. Later was also started on amiodarone gtt. Do to worsening hypotension she was up- titrated on levophed to 10. Consideration for cardioversion due to unstable arrhythmia however after discussion with family code stats was change to limited avoiding shock, cpr allowing only for continuation of ventilator support. Hb from admission had decreased to 7.3. No obvious source of bleed however given vitals she was transfused with 1 unit of PRBC. In light of this lovenox was held. Magnesium was found to be 1.7. Mag sulfate 1 g iv x 1 was given. K was found to be 2.2 after replacement this had imrpoved to 3.2. Patient remained sedated with fentanyl. Propofol was being weaned down and versed was initated. Due to hydrodynamic instability, cardiac arrhythmias patient was not placed in prone position with addition of NMB. Fio2 had been weaned to 70% which was maintained. 04/27 Patient improving. Amiodarone gtt completed. Rate improved. Noted to havea Tmax of 102. Weaning fio2, urine out put adequate 04/28 Patient remained afebrile overnight. continued to slowly improve. Vitals remained stable. 04/29 Required multiple vent adjustements Medications: Reviewed: Yes Vitals/I&O/Wt Last Vital Signs Temp 99.3 F 04/29/20 19:00 Pulse 95 04/29/20 20:20 Resp 25 H 04/29/20 21:10 BP 91/64 04/29/20 20:00 Pulse Ox 95 04/29/20 20:20 04/29/20 04/29/20 04/29/20 06:59 14:59 22:59 Intake Total 595.923 / 1856.256 50 / 50 412 / 462 Output Total 150 / 875 350 / 350 Balance 445.923 / 981.256 50 / 50 62 / 112 Physical Exam Narrative: EXAM NARRATIVE: General -chronic ill-appearing on mechanical ventilation HEENT -ET tube in place Chest- mechanical ventilation / Left. medi-port CVS- tachy Abdomen- non-distended : mccarthy Extremities- no edema Urinary Catheter Management^: Mccarthy: Cath Placed During This Visit: yes Reason for Continuing Indwelling Catheter: Accurate Measurement of Urinary Output in Critically Ill Patients Urinary Catheter Date of Insertion: 04/25/20 Data : 04/29/20 03:27 04/29/20 03:27 A&P Assessment and plan (1) Acute hypercapnic respiratory failure: Status: Acute (2) Sepsis with acute hypoxic respiratory failure: Status: Acute (3) Acute exacerbation of chronic obstructive airways disease: Status: Acute (4) Pneumonia due to COVID-19 virus: Status: Acute (5) Hypokalemia: Status: Acute (6) Tachyarrhythmia: Status: Acute (7) Anemia: Status: Acute (8) Pulmonary edema: Status: Acute Acute on chronic hypoxic/hypercapnic respiratory failure s/p Mechanical Ventilation - Etiology multi-factorial - COVID 19 vs superimposed bacterial pneumonia vs pulmonary edema vs possible underlying lung cancer vs COPD - Monitor Pplateau pressure q4hr, Goal < 30 - Xopnex q6hr scheduled - D-dimer 4.02 - > Lovenox 40 mg SQ BID - Continue propofol - wean as tolerated, fentanyl - Add versed PRN - May consider proning however improving - Maintain MAP > 65 - Wean IV pressors as tolerated - Repeat ABG in AM or PRN - Chest x-ray in AM - Will consider pulmonary consult if worsening - Requried multiple vent adjustements Sepsis due to COVID 19 pneumonia with hypotension - Tmax 102 - Possible super-imposed bacterial/ post obstructive - Low suspicion of bacterial - Check Pro-calcitonin - 0.21 - Blood culture x 2 - NGTD - Sputum culture - Continue vancomycin pharmacy to dose - Continue zosyn 3.375g IV q8hr - Continue Remdesivir 5 days total - Continue Decadron 6mg daily x total 10 days - Check Ferritin, CRP, Pro-luz elena, d-dimer q2 days Suspected congestive heart failure exacerabtion / vs non-cardiogenic pulmonary edema - unspecified type - no prior echo - Lasix 40 mg IV x 1 in ER - Check daily weight / Urine output - ECHO noted - Lasix 20 mg IV x 1 given again today P. Atrial Fib with RVR now rate controlled - Elevated troponin - 44 - > 42.9 - s/p adenosine 6mg / 12 mg - no response - Amiodarone switched to PO 400mg BID x 7 day - ECHO - pEF - Consider cardiology consult - Lovenox 40 mg SQ BID ( lower dose due to anemia ) - Risk for CVA Acute anemia - Hb 10.0- > 7.3 - > 9.7 - S/P 1 unit of PRBC - Repeat h/h - ON anticoagulation - Monitor for bleeding Hx of Lung cancer - Unclear prior type and chemo plan - Obtain records from PCP in am Diabetes Mellitus - Monitor blood sugar q4hr - Goal BS < 180 Gi ppx - Pepcid 20 mg IV BID DVT ppx - Lovenox 40 mg SQ daily - change to BID CODE STATUS : DNR Limited Attestations Medical Necessity Statement*: Continue hospital stay for vent management Time Spent in Patient Care: Greater than 35 minutes (>than 50% of time spent in counselling and/or direct pt care on unit) . Coding Level of Care Code Acute Process Controls Technician for g Fwd Diagnoses Acute hypercapnic respiratory failure J96.02 Sepsis with acute hypoxic respiratory failure A41.9; R65.20; J96.01 Acute exacerbation of chronic obstructive airways disease J44.1 Pneumonia due to COVID-19 virus U07.1; J12.89 Hypokalemia E87.6 Tachyarrhythmia R00.0 Anemia D64.9 Pulmonary edema J81.1
[2020-04-30] VITALS (45 sets, daily range): BP systolic 74–121; BP diastolic 44–80; PULSE 82–157; RESP 25–34; TEMP 37–37.4; O2SAT 78–95
[2020-04-30 00:24] LABS: Glucose Point of Care 119 mg/dL (70-110)
[2020-04-30] MEDS: dexamethasone 4 mg/mL INJ 6 MG IVP (00:46)
[2020-04-30] MEDS: piperacillin-tazobactam 3.375 GM in sodium chloride 0.9% (plus) 50 ML IV ×3 (00:47→17:33)
[2020-04-30] MEDS: levalbuterol 0.63 mg/3 mL Neb INHALATION ×4 (02:30→20:41)
[2020-04-30] MEDS: phenylephrine inj 25 MG in sodium chloride 0.9% 250 ML 24.2 MG IV (03:12)
[2020-04-30] MEDS: vancomycin 1,500 MG/300 ML PIGGYBACK 150 MG IV (04:04)
[2020-04-30 04:29] LABS: Alanine Aminotransferase 9 U/L (0-33); Alkaline Phosphatase 104 IU/L (35-105); Aspartate Amino Transferase 14 U/L (0-32); Blood Urea Nitrogen 54 mg/dL (8-23); Calcium 8.3 mg/dL (8.5-10.5); Carbon Dioxide 30 mmol/L (22-29); Chloride 115 mmol/L (98-107); Globulin 2.8 g/dL (1.3-4.6); Glucose 171 mg/dL (65-115); Osmolality Calculated 335 mOsm/kg (285-295); Sodium 153 mmol/L (136-145); Total Bilirubin 0.3 mg/dL (0.15-1.2); Total Protein 4.8 g/dL (6.6-8.7)
[2020-04-30 05:01] LABS: ABG PH Result 7.27 (7.35-7.45); Arterial Blood Gas Hematocrit 30.5 % (37-47); Base Excess ABG 0.4 mmol/L (-2.0-2.0); Blood Gas Allen Test Pos; Blood Gas Sample Type Arterial; HCO3 ABG 28.2 mmol/L (22-26); PO2 ABG 61.9 mmHg (80.0-100.0)
[2020-04-30 05:02] LABS: Blood Gas Sample Site Radial, right; Oxygen Device VENT
[2020-04-30] MEDS: enoxaparin 40 mg/0.4 mL Syringe SUBCUT (05:31)
[2020-04-30] MEDS: famotidine 20 mg/2 mL INJ IVP ×2 (05:31→17:33)
[2020-04-30] MEDS: remdesivir 100 MG in sodium chloride 0.9% (100 ml) 100 ML IV (05:31)
[2020-04-30 06:04] LABS: Glucose Point of Care 174 mg/dL (70-110)
--- NOTE | 2020-04-30 06:12 | XR_ITS ---
WS: [id number] Exam: XR chest 1V portable [id number] Date/Time of Exam: 04/30/2020 6:25 AM Reason For Exam: spo2 78 Comparison 04/29/2020. Extensive bilateral pulmonary infiltrates are noted and show no change. The heart is enlarged but unc hanged in size. Bibasal pleural effusions are noted unchanged. No pneumothorax. ET tube is in place e nding about 3 cm above the lexy in good position. An enteric tube extends into the stomach but the tip is out of the [id number]. Left-sided subclavian central line is noted probably ending in the l eft brachiocephalic vein. XR/XR chest 1V portable [id number] IMPRESSION: 1. Chest x-ray showing no significant change since previous exam.
[2020-04-30 06:49] LABS: ABG PCO2 63.7 mmHg (35-45)
[2020-04-30 06:49] LABS: ABG PCO2 61.7 mmHg (35-45)
[2020-04-30] MEDS: amiodarone 200 mg Tablet 400 MG OG-TUBE ×2 (08:48→17:33)
--- NOTE | 2020-04-30 09:00 | PC.SOCIAL ---
IMM Updated Page 2 of IMM updated and placed back in folder. Will be scanned to patient's EHR upon d/c from the hospital.
[2020-04-30 09:27] LABS: ABG PH Result 7.22 (7.35-7.45); Arterial Blood Gas Hematocrit 33.5 % (37-47); Base Excess ABG -1.6 mmol/L (-2.0-2.0); Blood Gas Allen Test Pos; Blood Gas Sample Type Arterial; PO2 ABG 62.1 mmHg (80.0-100.0)
[2020-04-30 09:29] LABS: ABG PCO2 65.5 mmHg (35-45); Blood Gas Operator Identificat CAK; Blood Gas Tidal Volume 300; Oxygen Device VENT
[2020-04-30 11:58] LABS: Glucose Point of Care 187 mg/dL (70-110)
--- NOTE | 2020-04-30 12:23 | PM.PN ---
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 Initial laboratory workup on arrival showed WBC of 8.6, hemoglobin of 10.0, hematocrit 35.1 and platelet count of 237. sodium 145, potassium 2.5, chloride 96, bicarb 38, BUN 30 and creatinine 0.7. AST of 37, ALT of 25 and alkaline phosphatase of 1 1. magnesium of 2.0. Troponin - T baseline 44, 42.90 at 120 min. CRP of 270.9. Influenza A/B negative. Chest x-ray showed bilateral pneumonia with possible superimposed pulmonary edema, dense consolidation in the right lung base and post obstructive changes related to possible central obstructive neoplasm. CTA Chest PE protocol was then performed which did not show any evidence of PE however again noted multi-lobar ground glass opacities with dense consolidation right RML/RLL. Also loss of air bronhograms with in the right lower lobe and obstruction of right lower lobe main bronchus suspecious for a discrete mass. Initial ABG pH of 7.29, pCO2 of 75.7, PO2 of 35.8 on nasal cannula. Patient was subsequently intubated and placed on mechanical ventilation. Repeat ABG showed 7.42, pCO2 of 53.8, Po2 of 64.2 and HCO3 of 35.1 on VC/AC In ER patient was given Decadron 10 mg IV x 1, Duoneb, Lasix 40 mg IV x 1, Lorazepam 2 mg IVP x 1 Mucomyst, Lovenox 70 mg SQx 1. K-rider 40 meq x 1, and 1 L NS bolus. Admitted to VICU where patient was continued on decadron 6 mg IV daily and initiated on Remdesivir 200mg iv x 1 followed by 100 mg IV daily. Also started on broad spectrum antibiotics with vancomycin pharmacy to dose, zosyn 3.375g IV. Additional potassium was replaced and also due to high risk she was started on lovenox 70 mg SQ BID. Shortly after admission she was found to be tachycardic. Initially appeared to be in SVT. She was given adenosine 6 mg x 1 and after no response 12 mg IV x 1. Did show minimal response however rate increased to 180s. Was noted to have hypotension and clinically appeared dry. 500 cc bolus of NS was given. After blood pressure improved Cardizem 10 mg x 2 was given a few hours apart. Later was also started on amiodarone gtt. Do to worsening hypotension she was up-titrated on levophed to 10. Consideration for cardioversion due to unstable arrhythmia however after discussion with family code stats was change to limited avoiding shock, cpr allowing only for continuation of ventilator support. Hb from admission had decreased to 7.3. No obvious source of bleed however given vitals she was transfused with 1 unit of PRBC. In light of this lovenox was held. Magnesium was found to be 1.7. Mag sulfate 1 g iv x 1 was given. K was found to be 2.2 after replacement this had imrpoved to 3.2. Patient remained sedated with fentanyl. Propofol was being weaned down and versed was initated. Due to hydrodynamic instability, cardiac arrhythmias patient was not placed in prone position with addition of NMB. Fio2 had been weaned to 70% which was maintained. 04/27 Patient improving. Amiodarone gtt completed. Rate improved. Noted to havea Tmax of 102. Weaning fio2, urine out put adequate 04/28 Patient remained afebrile overnight. continued to slowly improve. Vitals remained stable. 04/29 Required multiple vent adjustments 04/30 Overnight patient continued to have very low tidal volumes. Repeat ABGs showed increasing hypercapnia. FiO2 requirements had increased to 90 to 100%. Ongoing adjustment of mechanical ventilator settings. Converted to normal sinus rhythm in afternoon. Did not have any fevers overnight. Medications: Reviewed: Yes Vitals/I&O/Wt Last Vital Signs Temp 99.3 F 04/30/20 08:00 Pulse 89 04/30/20 11:00 Resp 25 H 04/30/20 09:10 BP 112/57 04/30/20 11:00 Pulse Ox 90 04/30/20 11:00 04/29/20 04/30/20 04/30/20 22:59 06:59 14:59 Intake Total 854.5 / 1104.5 703.150 / 1807.650 238.298 / 238.298 Output Total 450 / 450 350 / 800 Balance 404.5 / 654.5 353.150 / 1007.650 238.298 / 238.298 Physical Exam Narrative: EXAM NARRATIVE: General -chronic ill-appearing on mechanical ventilation HEENT -ET tube in place Chest- mechanical ventilation / Left. medi-port CVS- tachy Abdomen- non-distended : mccarthy Extremities- no edema Urinary Catheter Management^: Mccarthy: Cath Placed During This Visit: yes Reason for Continuing Indwelling Catheter: Accurate Measurement of Urinary Output in Critically Ill Patients Urinary Catheter Date of Insertion: 04/25/20 Data : 04/29/20 03:27 04/30/20 03:30 A&P Assessment and plan (1) Acute hypercapnic respiratory failure: Status: Acute (2) Sepsis with acute hypoxic respiratory failure: Status: Acute (3) Acute exacerbation of chronic obstructive airways disease: Status: Acute (4) Pneumonia due to COVID-19 virus: Status: Acute (5) Hypokalemia: Status: Acute (6) Tachyarrhythmia: Status: Acute (7) Anemia: Status: Acute (8) Pulmonary edema: Status: Acute Additional A&P Information Acute on chronic hypoxic/hypercapnic respiratory failure s/p Mechanical Ventilation - Underlying O2 dependent COPD / Pneumoconiosis - Etiology multi-factorial - COVID 19 vs superimposed bacterial pneumonia vs pulmonary edema vs possible underlying lung cancer vs COPD - `04/25 CTA -> Multilobar dense consolidation - severe COVID-19 pneumonia, air bronchograms in right lower lobe and obstruction of RLL main bronchus possible wiht a discrete mass. - 04/30 Vent settings : VC/AC TV 300, RR 25, PIP of 28, I-time, 1.1, PEEP of 10 on 90 % FIo2 of 90 % - Patients RR 25, MV 7.5, Lung compliance of 18, Airway resistance of 5 - 04/30 - Chest x-ray - > Extensive bilateral pulmonary infiltrates are noted and show no change. The heart is enlarged but unchanged in size. Bibasilar pleural effusions are noted unchanged. No pneumothorax - 04/30 - ABG - 7.22, PCO2 of 65.5, Po2 62.1, HCO3 of 27.0 on above settings - Fentanyl ggt for sedation with PRN Versed - Xopenex 0.63 inh Q6hr - Will repeat ABG in PM today - Chest x-ray in am - ABG in AM - Will attempt to prone for 3 days if stable today on vent - WIll require NMB prior to proning COVID -19 Pneumonia - Decadron 6 mg IV daily - Remdesivir to complete 5 day course today - CRP of 108.8, Ferritin 2031-> 1241, LDH 379 - D-dimer 4.02 -> 4.02 -> 19.36 - Increased risk of VTE - On heparin ggt - Repeat Ferritin, CRP, LDH in am - Droplet precautions Shock - Septic vs med induced - Last fever 102 on 04/28 - now afebrile - Pro-calcitonin 0.26 -> 0.14 - Levophed - switched to patience - Wean as tolerated - Maintain MAP > 65 - Port in place - 04/25 Blood culture - negative - 04/26 - Blood culture - negative - 04/26 - Sputum culture - negative - Continue vancomycin pharmacy to dose - Continue zosyn 3.375 g IV q6hr - Will consider d-escalating abx Hypernatremia - Free h20 deficit - Increase Free h20 flushes to 100ml q4hr - Repeat BMP in afternoon - May consider increasing flush or adding d5w Paroxysmal Atrial fibrillation with RVR - Previously on amiodarone gtt - Was transitioned to amiodarone 400 mg BID - Converted to NSR today - rate controlled - ECHO pEF - no RWM abnormality - Heparin gtt for CVA prevention Acute anemia with iron deficiency - Hb 10.0- > 7.3 - > 9.7 - > 9.2 - S/P 1 unit of PRBC - Iron 24 , TIBC, % sat - WNL - No evidence of bleeding - FOBT - Pending - Monitor on heparin Diabetes mellitus with steroid induced hyperglycemia - Goal BS < 180 - Sliding scale coverage - Continue to titrate insulin to achieve goal Dyslipidemia - Previously on statin - On hold currently GI ppx - Pepcid 20 mg IV BID DVT ppx - On heparin gtt. - Goal BS < 180 Disposition: Patient is currently limited resuscitation Overall poor prognosis Will d/w family regarding half-way care plan May consider Hospice/Comfort care measure Attestations Medical Necessity Statement*: Continue hospitalization for management of COVID-19 related respiratory failure requiring mechanical ventilation. Time Spent in Patient Care: Greater than 35 minutes (>than 50% of time spent in counselling and/or direct pt care on unit). Critical Care Time: Critical Care Time (min): 55 Coding Level of Care Code Acute Pharmacist Assistant for Chg Fwd Diagnoses Acute hypercapnic respiratory failure J96.02 Sepsis with acute hypoxic respiratory failure A41.9; R65.20; J96.01 Acute exacerbation of chronic obstructive airways disease J44.1 Pneumonia due to COVID-19 virus U07.1; J12.89 Hypokalemia E87.6 Tachyarrhythmia R00.0 Anemia D64.9 Pulmonary edema J81.1
[2020-04-30 12:48] LABS: ABG PH Result 7.23 (7.35-7.45); Arterial Blood Gas Hematocrit 33.4 % (37-47); Base Excess ABG -0.4 mmol/L (-2.0-2.0); Blood Gas Allen Test Pos; Blood Gas Operator Identificat CAK; Blood Gas Sample Site Radial, left; Blood Gas Sample Type Arterial; HCO3 ABG 28.4 mmol/L (22-26); Oxygen Device VENT; PO2 ABG 54.8 mmHg (80.0-100.0)
[2020-04-30 12:50] LABS: ABG PCO2 68.5 mmHg (35-45)
[2020-04-30 13:51] LABS: Platelet Count 67 10^3/cmm (130-400)
[2020-04-30 16:25] LABS: ABG PH Result 7.26 (7.35-7.45); Alveolar-Arterial Oxygen Gradi 65.6 mmHg (5-10); Arterial Blood Gas Hematocrit 31.2 % (37-47); Base Excess ABG 0.1 mmol/L (-2.0-2.0); Blood Gas Allen Test Pos; Blood Gas Operator Identificat CAK; Blood Gas Sample Site Radial, left; Blood Gas Sample Type Arterial; HCO3 ABG 28.2 mmol/L (22-26); HGB O2 Sat 88.6 % (95-100); Ionized Calcium Level - ABG 1.3 mmol/L (1.1-1.4); Methemoglobin < 0.0 % (0.4-1.5); Oxygen Device VENT; Oxygen Saturation ABG 89.3; PO2 ABG 63.3 mmHg (80.0-100.0); Potassium Level - ABG 4.9 mmol/L (3.5-5.0); Total Hemoglobin 10.2 g/dL (12-16)
[2020-04-30 16:28] LABS: ABG PCO2 63.7 mmHg (35-45)
[2020-04-30 17:41] LABS: Glucose Point of Care 204 mg/dL (70-110)
[2020-04-30 18:58] LABS: Partial Thromboplastin Time 29.1 SECONDS (23.9-36.7)
--- NOTE | 2020-04-30 22:24 | PC.NURSE ---
Holding Argatroban per MD order until Art Line access has been obtained.
[2020-05-01] VITALS (54 sets, daily range): BP systolic 96–131; BP diastolic 54–67; PULSE 0–117; RESP 0–33; TEMP 37.6–38.2; O2SAT 18–95
--- NOTE | 2020-05-01 00:41 | PM.ACPR ---
Procedure/Consent Procedure Narrative: Art line was secured to obtain blood gas and monitor blood pressure patient is edematous and blood pressure cuff was not able to give accurate reading Currently patient is on phenylephrine Ultrasound-guided right radial arterial line placement ICU nurse was present throughout the procedure ICU nurse witness placement of arterial line in right radial artery lumen Acute Procedures Arterial Line: Time out performed: Yes Size (Gauge): 20 Technique used: guide wire technique Post-Procedure: dry sterile dressing placed Patient tolerated procedure: well Complications: none and excessive bleeding Site: right and radial Additional comments: Postprocedural no complications, Systolic blood pressure 94-100mmhg
[2020-05-01] MEDS: dexamethasone 4 mg/mL INJ 6 MG IVP (00:53)
[2020-05-01] MEDS: piperacillin-tazobactam 3.375 GM in sodium chloride 0.9% (plus) 50 ML IV ×2 (00:53→09:42)
[2020-05-01] MEDS: digoxin 250 mcg/ml INJ 2 mL IVP (01:19)
[2020-05-01] MEDS: phenylephrine inj 25 MG in sodium chloride 0.9% 250 ML 12.1 MG IV ×2 (01:20→05:53)
[2020-05-01] MEDS: argatroban 250 MG in sodium chloride 0.9% 250 ML 8.6 MG IV (01:50)
[2020-05-01 02:31] LABS: Glucose Point of Care 226 mg/dL (70-110)
[2020-05-01] MEDS: acetaminophen 650 mg/20.3 mL UDC PO (03:34)
--- NOTE | 2020-05-01 03:35 | PC.NURSE ---
Administered one dose of tylenol per MD order at this time even though temp is not greater than 38C, MD aware.
[2020-05-01] MEDS: levalbuterol 0.63 mg/3 mL Neb INHALATION ×3 (03:56→15:30)
[2020-05-01 04:19] LABS: Basophils # 0.1 10^3/uL (0.0-0.1); Basophils % 0.5 %; Eosinophils # 0.1 10^3/uL (0.0-0.8); Eosinophils % 0.5 %; Hematocrit 35.7 % (37.0-47.0); Lymphocytes # 0.3 10^3/uL (0.8-4.8); Lymphocytes % 1.7 %; Mean Corpuscular Hemoglobin 26.5 pg (28.0-34.0); Mean Corpuscular Volume 94.7 fL (81-99); Mean Platelet Volume 13.3 fL (7.4-10.4); Monocytes # 0.7 10^3/uL (0.2-0.9); Monocytes % 4.8 %; Neutrophils # 13.19 10^3/uL (1.8-7.7); Neutrophils % 86.2 %; Nucleated Red Blood Cells # 0.1 /100WBC; Nucleated Red Blood Cells % 0.7 %; Platelet Count 85 10^3/cmm (130-400); Red Blood Count 3.77 10^6/uL (4.1-5.3); Red Cell Distribution Width 17.4 % (12.1-15.1); White Blood Count 15.3 10^3/uL (4.0-10.0)
[2020-05-01 04:42] LABS: Alanine Aminotransferase 9 U/L (0-33); Alkaline Phosphatase 105 IU/L (35-105); Anion Gap 12.1 (5-19); Aspartate Amino Transferase 15 U/L (0-32); Blood Urea Nitrogen 68 mg/dL (8-23); C Reactive Protein 70.4 mg/L (0.0-4.9); Calcium 8.3 mg/dL (8.5-10.5); Carbon Dioxide 28 mmol/L (22-29); Chloride 115 mmol/L (98-107); Globulin 2.7 g/dL (1.3-4.6); Glucose 247 mg/dL (65-115); Osmolality Calculated 338 mOsm/kg (285-295); Potassium 5.1 mmol/L (3.5-5.1); Sodium 150 mmol/L (136-145); Total Bilirubin 0.3 mg/dL (0.15-1.2); Total Protein 4.7 g/dL (6.6-8.7)
[2020-05-01 04:48] LABS: D Dimer >= 20.00 ug/mIFEU (0-0.59)
[2020-05-01 04:51] LABS: ABG PCO2 59.2 mmHg (35-45); ABG PH Result 7.28 (7.35-7.45); Arterial Blood Gas Hematocrit 36.5 % (37-47); Base Excess ABG -0.3 mmol/L (-2.0-2.0); Blood Gas Operator Identificat JB; Blood Gas Sample Site ARTLINE; Blood Gas Sample Type Arterial; HCO3 ABG 27.5 mmol/L (22-26); PO2 ABG 66.7 mmHg (80.0-100.0)
[2020-05-01 04:52] LABS: Blood Gas Tidal Volume 0.31; Oxygen Device VENT
[2020-05-01 04:53] LABS: Partial Thromboplastin Time 68.4 SECONDS (23.9-36.7)
[2020-05-01 05:04] LABS: Lactate Dehydrogenase 374 U/L (135-214)
[2020-05-01 05:32] LABS: Ferritin 693 ng/mL (15-150)
[2020-05-01] MEDS: vancomycin 1,500 MG/300 ML PIGGYBACK 150 MG IV (05:46)
[2020-05-01] MEDS: famotidine 20 mg/2 mL INJ IVP (05:51)
[2020-05-01 06:17] LABS: Glucose Point of Care 221 mg/dL (70-110)
--- NOTE | 2020-05-01 07:00 | XR_ITS ---
WS: [id number] Exam: XR chest 1V portable [id number] Date/Time of Exam: 05/01/2020 7:16 AM Reason For Exam: respiratory failure Comparison 04/30/2020. Extensive bilateral pulmonary infiltrates show some improvement since prior study. The heart remains enlarged. Bibasal pleural effusions are noted. ET tube remains in good position ending about 4 cm abo ve the lexy. NG tube is in place in the stomach. Right-sided IJ catheter noted ending in the midpor tion of the SVC. No pneumothorax. Monitoring leads superimpose the chest. XR/XR chest 1V portable [id number] IMPRESSION: 1. Extensive bilateral pulmonary infiltrates show some mild improvement since p rior study. 2. Cardiac enlargement unchanged. 3. ET tube, enteric tube and central line all appear to be in satisfactory posi tion.
[2020-05-01 07:04] LABS: Slide Review Slide Review Perform
[2020-05-01] MEDS: amiodarone 200 mg Tablet 400 MG OG-TUBE (09:42)
--- NOTE | 2020-05-01 19:00 | PC.NURSE ---
Report received, care assumed. Monitor alarms, plan of care et previous orders reviewed Please see physical assessment et vital sign flow sheet for vent settings. Patient orally intubated, see RT flowsheet for vent settings
--- NOTE | 2020-05-01 19:25 | PC.NURSE ---
Dr. Thomson in unit. Dr. Thomson spoke with patient's son Haroon vasquez they decided that they will make patient comfort care. Will notify RT of plan of care.
--- NOTE | 2020-05-01 19:30 | PC.NURSE ---
RT at bedside. Patient currently on fentanyl et versed gtts. RN will assess patient to determine needs for comfort medications. Enrique et argotraban gtts stopped. Patient extubated per RT to 2 liter nasal cannula. Will closely monitor patient.
--- NOTE | 2020-05-01 19:30 | PC.NURSE ---
Addendum entered by Taylor Luna RN 05/02/20 00:34: 83 mL fentanyl waste witnessed with Tracey Moyer RN. Original Note: All of patient's gtts were turned off. Fentanyl gtt was taken down et wasted. 83 mL left to count in bag. All remaining Fentanyl wasted et witnessed by Taylor GOMEZ.
--- NOTE | 2020-05-01 19:42 | PC.NURSE ---
Fentanyl et Versed gtts off.
--- NOTE | 2020-05-01 19:55 | PC.NURSE ---
Addendum entered by Taylor Luna RN 05/02/20 00:35: Time of verified via auscultation and palpation of carotid pulse with Tracey Moyer RN at 1954. Original Note: Time of : 1954. Absence of cardiopulmonary function noted by two RNs. Will notify the required individuals of time of .
--- NOTE | 2020-05-01 20:00 | PC.NURSE ---
After time of declared, RN removed all remaining lines et de-accessed port. Body prepared for transfer to home.
--- NOTE | 2020-05-01 20:30 | PC.NURSE ---
Time of notification: RN notified Dr. Reid at 2029. Notified patient's son Haroon at 2030. Haroon (patient's son) provided home details. RN was able to answer all questions et address concerns at this time. physical testing supervisor at 2030 as well.
--- NOTE | 2020-05-01 20:35 | PC.NURSE ---
[facility] notification of time of . Spoke with Soraya Mars with [facility] services. Provided her with all the patient information. Soraya did notify RN that patient was not a candidate for eye or tissue donation et we could go ahead et release the patient to the home.
--- NOTE | 2020-05-01 20:46 | PC.NURSE ---
Restraint discontinuation note: Patient being placed on comfort measures. Prior to extubation, restraints removed.
--- NOTE | 2020-05-01 20:54 | PC.NURSE ---
Fall risk assessment comment: Patient's time of was 1954. Fall risk assessment is not applicable any longer.
--- NOTE | 2020-05-01 21:32 | P.DES_ITS ---
Discharge Providers DDS Date of Admission: 04/25/20 20:01 Date Summary Completed: 05/08/20 Attending Provider at Admission: Harmeet Reid MD Time of : 19:55 Attending Provider at Discharge: Tony Thomson Primary Care Provider: Praveen Combs MD DS Diagnoses Hospital Diagnoses (1) Acute hypercapnic respiratory failure: (2) Sepsis with acute hypoxic respiratory failure: (3) Acute exacerbation of chronic obstructive airways disease: (4) Pneumonia due to COVID-19 virus: (5) Hypokalemia: (6) Tachyarrhythmia: (7) Anemia: (8) Pulmonary edema: Reason for Visit Reason for Visit: SOB; COVID POS Summary Date and Time of Date of : 05/01/20 Time of : 19:55 Summary Summary: 75-year-old female with a past medical history significant for parosyxmal atrial fibrillation, hypertension, dyslipidemia, gastroesophageal reflux disease, osteoarthritis, diabetes mellitus, 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 Initial laboratory workup on arrival showed WBC of 8.6, hemoglobin of 10.0, hematocrit 35.1 and platelet count of 237. sodium 145, potassium 2.5, chloride 96, bicarb 38, BUN 30 and creatinine 0.7. AST of 37, ALT of 25 and alkaline phosphatase of 1 1. magnesium of 2.0. Troponin - T baseline 44, 42.90 at 120 min. CRP of 270.9. Influenza A/B negative. Chest x-ray showed bilateral pneumonia with possible superimposed pulmonary edema, dense consolidation in the right lung base and post obstructive changes related to possible central obstructive neoplasm. CTA Chest PE protocol was then performed which did not show any evidence of PE however again noted multi-lobar ground glass opacities with dense consolidation right RML/RLL. Also loss of air bronhograms with in the right lower lobe and obstruction of right lower lobe main bronchus suspecious for a discrete mass. Initial ABG pH of 7.29, pCO2 of 75.7, PO2 of 35.8 on nasal cannula. Patient was subsequently intubated and placed on mechanical ventilation. Repeat ABG showed 7.42, pCO2 of 53.8, Po2 of 64.2 and HCO3 of 35.1 on VC/AC In ER patient was given Decadron 10 mg IV x 1, Duoneb, Lasix 40 mg IV x 1, Lorazepam 2 mg IVP x 1 Mucomyst, Lovenox 70 mg SQx 1. K-rider 40 meq x 1, and 1 L NS bolus. Admitted to VICU where patient was continued on decadron 6 mg IV daily and initiated on Remdesivir 200mg iv x 1 followed by 100 mg IV daily. Also started on broad spectrum antibiotics with vancomycin pharmacy to dose, zosyn 3.375g IV. Additional potassium was replaced and also due to high risk she was started on lovenox 70 mg SQ BID. Shortly after admission she was found to be tachycardic. Initially appeared to be in SVT. She was given adenosine 6 mg x 1 and after no response 12 mg IV x 1. Did show minimal response however rate increased to 180s. Was noted to have hypotension and clinically appeared dry. 500 cc bolus of NS was given. After blood pressure improved Cardizem 10 mg x 2 was given a few hours apart. Later was also started on amiodarone gtt. Do to worsening hypotension she was up- titrated on levophed to 10. Consideration for cardioversion due to unstable arrhythmia however after discussion with family code stats was change to limited avoiding shock, cpr allowing only for continuation of ventilator support. Patient completed course of remdisivir and was maintained on decadron 6 mg daily. In addition was on heparin gtt due to high risk of PE. Hb from admission had decreased to 7.3. No obvious source of bleed however given vitals she was transfused with 1 unit of PRBC. In light anticoagulation was briefly held and resumed once hb was stable Due to hydrodynamic instability, cardiac arrhythmias patient was not placed in prone position with addition of NMB. Fio2 remained high. Care was discussed with patients son who requested patient to be transitioned to comfort care as she would not have wnated to be intubated and have artifial life prolonging measures. Patients son who is the DPOA expressed these wishes to nursing staff and myself. Patient was transitioned to comfort care and terminally extubated. on 05/01/2020 at 1955. Additional Data Confirmation of as documented by pronouncing clinician: no pulse, no respirations, no heart sounds and pupils fixed and dilated Family: contacted Additional persons at bedside: nursing staff Attending/PCP notified?: I am attending Was code activated?: No Autopsy requested?: No Advance directives?: No (Unable to obtain) Hospice patient?: No Discharge Plan Discharge Patient Disposition: Condition: Stable Probable Cause of Probable cause of : Cardiac arrest DS Attestations Time Spent in /Discharge Care*: greater than 30 min Quality - AMI: AMI present?: No Quality - Stroke: CVA present?: No Quality - VTE: VTE present?: No Coding Level of Care Code Acute [employer] for g Fwd Diagnoses Acute hypercapnic respiratory failure J96.02 Sepsis with acute hypoxic respiratory failure A41.9; R65.20; J96.01 Acute exacerbation of chronic obstructive airways disease J44.1 Pneumonia due to COVID-19 virus U07.1; J12.89 Hypokalemia E87.6 Tachyarrhythmia R00.0 Anemia D64.9 Pulmonary edema J81.1
--- NOTE | 2020-05-01 22:45 | PC.NURSE ---
Hunter with [facility] came to pickler helper patient. Patient was loaded onto the transport cart. Patient's nurse et all belongings were given to home. Patient left the facility at [id number]. carpenter supervisor notified et patient left facility to home.
--- NOTE | 2020-05-01 23:51 | PM.EVENT ---
Event Note Event Note: Time of 1954 note to be done by Dr. Thomson
== END 2020-05-01 19:55 | disposition expired | DRG 870 ==
LOC: ER 20:42 → ICU 23:46
PROVIDERS: Admitting Provider Internal Medicine; Emergency Provider Emergency Medicine; PCP General Practice; Visit Provider Hospitalist
DX: A41.9 Sepsis, unspecified organism (principal); U07.1 COVID-19; J12.89 Other viral pneumonia; J96.22 Acute and chronic respiratory failure with hypercapnia; J96.21 Acute and chronic respiratory failure with hypoxia; J15.9 Unspecified bacterial pneumonia; C34.90 Malignant neoplasm of unspecified part of unspecified bronchus or lung; J44.1 Chronic obstructive pulmonary disease with (acute) exacerbation; J44.0 Chronic obstructive pulmonary disease with (acute) lower respiratory infection; D84.9 Immunodeficiency, unspecified; Z92.21 Personal history of antineoplastic chemotherapy; Z92.3 Personal history of irradiation; I48.0 Paroxysmal atrial fibrillation; E78.5 Hyperlipidemia, unspecified; K21.9 Gastro-esophageal reflux disease without esophagitis; I11.0 Hypertensive heart disease with heart failure; I50.9 Heart failure, unspecified; M19.90 Unspecified osteoarthritis, unspecified site; Z99.81 Dependence on supplemental oxygen; E11.65 Type 2 diabetes mellitus with hyperglycemia; T38.0X5A Adverse effect of glucocorticoids and synthetic analogues, initial encounter; Z87.891 Personal history of nicotine dependence; E87.6 Hypokalemia; I95.9 Hypotension, unspecified; D50.9 Iron deficiency anemia, unspecified
CPT/HCPCS: 12345; 31500; 36416; 36430; 36591; 36592; 36600; 71045; 71275; 80048; 80051; 80053; 80202; 81001; 82330; 82728; 82803; 82805; 82962; 83036; 83540; 83550; 83605; 83615; 83735; 83880; 84132; 84145; 84443; 84484; 85018; 85025; 85049; 85378; 85384; 85610; 85730; 86140; 86403; 86850; 86900; 86920; 87040; 87070; 87205; 87449; 87804; 93005; 93306; 94003; 94640; 94660; 94669; 94799; 96372; 99283; 99292; J0153; J0282; J0330; J0883; J1100; J1160; J1650; J1815; J1940; J1956; J2060; J2250; J2370; J2543; J2704; J3010; J3370; J3475; J3480; J3490; J7030; J7050; J7060; J7608; J7614; P9016; Q3014; Q9967